=== PATIENT | female | born 1970 | race Caucasian/White ===

== ENCOUNTER → 2021-01-31 08:32 | Outpatient (CLI) | payer OTHER, SELFPAY ==
--- NOTE | 2021-01-31 08:55 | MM_ITS ---
PROCEDURE INFORMATION: Exam: MG Screening 3D Mammography Exam date and time: 01/31/2021 8:55 AM Age: 50 years old Clinical indication: Encounter for screening mammogram for malignant neoplasm of breast TECHNIQUE: Imaging protocol: Screening tomosynthesis and 2D mammography including computer-aided detection (CAD) when performed. COMPARISON: No relevant prior studies available. FINDINGS: MAMMOGRAPHY: Breast composition: The breast tissue is heterogeneously dense, which may obscure small masses. Mass: None. Architectural distortion: None. Calcifications: No suspicious calcifications. Asymmetric density: None. Skin thickening: None. Axillary adenopathy: None. IMPRESSION: No mammographic evidence of malignancy. Annual screening is recommended unless otherwise clinically indicated. ASSESSMENT: BI-RADS Category 1: Negative
== END ==
PROVIDERS: PCP Family Medicine; Visit Provider Family Medicine
DX: Z12.31 Encounter for screening mammogram for malignant neoplasm of breast (principal)
CPT/HCPCS: 77063; 77067

== ENCOUNTER → 2021-03-14 12:58 | Outpatient (CLI) | payer OTHER, SELFPAY | PROVIDERS: Visit Provider Internal Medicine Gastroenterology | DX: Z01.812 Encounter for preprocedural laboratory examination (principal); Z11.52 Encounter for screening for COVID-19; Z12.11 Encounter for screening for malignant neoplasm of colon | CPT/HCPCS: U0003 ==

== ENCOUNTER 2021-03-17 11:23 | Day surgery (SDC) | payer OTHER, SELFPAY ==
[2021-03-11 10:43] VITALS: BMI 29.7
[2021-03-17 11:37] VITALS: BP 162/95; PULSE 78; RESP 16; TEMP 37.6; O2SAT 100
--- NOTE | 2021-03-17 11:40 | P.PN_ITS ---
[facility] Anesthesia Checklist - Patient Identification Patient Identification: Arm Band - Structural Data Admitted From: Home Planned Operative Procedure/s: Colonoscopy Consent for Planned Operative Procedure(s) Verified: Yes - NPO Status Verified Time NPO: 00:00 - Airway Assessment C-Spine Mobility Assessed: Yes TMJ Mobility Assessed: Yes Dentition: Good Dentition - Neurological Assessment Level of Consciousness: Awake Hx Seizures: No Numbness or tingling in extremities: No - Anesthesia Plan Anesthesia Risk discussed: Yes Anesthesia Plan: Verified ASA Class: II Anesthesia Type: MAC [facility] History I have reviewed the patient's past medical history: Yes Medical History: Reports:: Anxiety, Hyperlipidemia, Hypertension, Migraine Denies:: Cancer, Diabetes Mellitus Type 1, Diabetes Mellitus Type 2, Internal Pacemaker, MRSA *Have you ever received a pneumonia vaccine?: No *Have you received a flu vaccine this season?: No Anesthesia experience/problems:: None Laterality Cases: Bilateral: Tonsillectomy Other Surgeries: Yes: Appendectomy, Hysterectomy-Total. No: Pacemaker Amputation: No Fractures: No - *Social History Smoking Status: Never smoker Alcohol Intake: never Substance Use Type: denies use *Occupational Status:: retired Housing: house *Travel in the last 8 weeks: None - Psychiatric History Pschychiatric History:: Reports:: Anxiety Family Hx:: No significant family history
--- NOTE | 2021-03-17 12:52 | HMH.PROC ---
[facility] Procedure Note Procedure Note:: Colonoscopy Procedure Report: Colonoscopy with cold biopsies Endoscopist: Pepe Brown II, MD Referring physician: Daniel Martinez MD Date of Procedure: March 17, 2021 Equipment: Olympus 190 variable stiffness pediatric colonoscope Sedation: MAC sedation Indication: Mrs. Sandoval is a 51-year-old who is here for initial screening colonoscopy. She reports no abdominal pain, weight loss, change in her bowel habits or rectal bleeding. She reports no family history of colon cancer. Her sister did have complicated diverticulitis requiring surgery. Procedure: Prior to the procedure, a history and physical exam was performed, and patient's medications and allergies were reviewed. The risks, benefits and alternatives of the sedation and procedure were discussed with the patient. All questions were answered and informed consent was obtained. The patient was brought to the procedure room. Patient identification and proposed procedure were verified by the physician and the nurse. The patient was placed in a left lateral decubitus position and the scope was passed under direct vision. Throughout the procedure, the patient's blood pressure, pulse, and oxygen saturations were monitored continuously. The colonoscopy was accomplished without difficulty. The patient tolerated the procedure well. Findings: On digital rectal examination there was normal rectal tone. There were no external hemorrhoids. The colonoscope was introduced through the anal canal to the rectum and advanced to the cecum. The ileocecal valve and appendiceal orifice were identified. The scope was advanced a short distance into the ileum which appeared grossly normal. The scope was then withdrawn into the colon. The cecum, ascending and transverse colon were grossly normal. There was some mild mucosal patchy erythema in the distal descending and sigmoid colon. Cold biopsies were obtained. There were no other mucosal abnormalities identified. Upon retroflexion within the rectum there were grade 1 none internal hemorrhoids.The preparation was excellent throughout with [place] Preparation Score of 9. The cecal time was 11 minutes. Impression: 1. Very mild focal descending/sigmoid erythema/edema?rule out self-limited colitis otherwise normal colonoscopy to ileum Plan: I will follow-up the biopsies. The patient will not require surveillance colonoscopy again for 10 years by ACS guidelines.
[2021-03-17 12:55] VITALS: BP 86/60; PULSE 76; RESP 12; TEMP 36.5; O2SAT 91
[2021-03-17 13:05] VITALS: BP 135/74; PULSE 71; RESP 16; O2SAT 92
[2021-03-17 13:15] VITALS: BP 124/77; PULSE 67; RESP 16; O2SAT 99
[2021-03-17 13:25] VITALS: BP 129/73; PULSE 60; RESP 16; TEMP 36.5; O2SAT 99
[2021-03-17 15:22] VITALS: O2SAT 97
== END 2021-03-17 13:30 | disposition home or self-care (01) ==
LOC: OUTP 11:25
PROVIDERS: PCP Family Medicine; Visit Provider Internal Medicine Gastroenterology
PROC: 0DJD8ZZ Inspection of Lower Intestinal Tract, Via Natural or Artificial Opening Endoscopic (ICD-10-PCS; CPT 45378; principal; 2021-03-17 12:30)
DX: Z12.11 Encounter for screening for malignant neoplasm of colon (principal); L53.8 Other specified erythematous conditions; Z83.79 Family history of other diseases of the digestive system; E78.5 Hyperlipidemia, unspecified; I10 Essential (primary) hypertension; F41.9 Anxiety disorder, unspecified; G43.909 Migraine, unspecified, not intractable, without status migrainosus; Z90.49 Acquired absence of other specified parts of digestive tract; Z88.1 Allergy status to other antibiotic agents; Z88.6 Allergy status to analgesic agent; Z88.8 Allergy status to other drugs, medicaments and biological substances; Z79.899 Other long term (current) drug therapy
CPT/HCPCS: 45380; J2704

== ENCOUNTER → 2022-06-25 01:37 | Outpatient (CLI) | payer OTHER, SELFPAY ==
[2022-06-25 18:30] LABS: Basophils # 0.2 K/mm3 (0-0.2); Basophils % 1.5 % (0.1-2.0); Chloride 100 mmol/L (98-107); Eosinophils # 0.4 K/mm3 (0.0-0.4); Hematocrit 44.9 % (37.0-47.0); Hemoglobin 15.2 g/dL (12.2-16.2); Lymphocytes # 2.7 K/mm3 (0.7-4.5); Lymphocytes % 22.2 % (10-50); Mean Corpuscular HGB Conc 33.9 g/dL (31.8-35.4); Mean Corpuscular Volume 88.5 fl (81-99); Mean Platelet Volume 9.5 fl (7.4-10.4); Monocytes # 0.7 K/mm3 (0.1-1.0); Neutrophils # 8.3 K/mm3 (1.8-7.8); Neutrophils % 67.4 % (37.0-80.0); Platelet Count 442 K/mm3 (142-424); Red Blood Count 5.08 M/mm3 (4.20-5.40); Red Cell Distribution Width 12.9 % (11.5-17.5); Sodium 139 mmol/L (136-145); White Blood Count 12.3 K/mm3 (4.8-10.8)
[2022-06-25 18:31] LABS: Potassium 3.6 mmoL/L (3.5-5.1)
[2022-06-25 18:33] LABS: Alanine Aminotransferase 39 U/L (12-78); Albumin Level 4.4 g/dl (3.5-5.0); Albumin/Globulin Ratio 1.6 (1.1-1.8); Alkaline Phosphatase 115 U/L (38-126); Anion Gap 17.6 mEq/L (5-15); Aspartate Amino Transferase 51 U/L (14-36); Bilirubin,Total 0.4 mg/dl (0.2-1.3); Blood Urea Nitrogen 4 mg/dl (7-17); Carbon Dioxide 25 mmol/L (22.0-30.0); Cholesterol 170 mg/dl (140-200); Estimated Glomerular Filt Rate 105 ml/min (>60); GFR (African American) 127 ML/MIN (>60); Globulin 2.8 g/dL (1.3-3.2); Total Protein,Serum 7.2 g/dl (6.3-8.2); Triglycerides 286 mg/dl (30-150); VLDL Cholesterol 57 mg/dL (0-40)
[2022-06-25 18:34] LABS: Calcium 9.5 mg/dl (8.4-10.2); Chol/HDL Ratio 4.3 (1-3.5); Glucose 113 mg/dl (74-100); HDL Cholesterol 40 mg/dl (40-60)
[2022-06-25 18:45] LABS: Direct LDL Cholesterol 74.02 mg/dL (100-129)
[2022-06-25 20:07] LABS: Hemoglobin A1C 5.1 % (4.0-6.0)
== END ==
PROVIDERS: PCP Family Medicine; Visit Provider Family Medicine
DX: E66.09 Other obesity due to excess calories (principal); Z68.33 Body mass index [BMI] 33.0-33.9, adult; Z79.899 Other long term (current) drug therapy
CPT/HCPCS: 80053; 80061; 83036; 84443; 85025

== ENCOUNTER → 2023-01-18 12:56 | Outpatient (CLI) | payer OTHER, SELFPAY | PROVIDERS: PCP Family Medicine; Visit Provider Family Medicine | DX: R00.2 Palpitations (principal) | CPT/HCPCS: 93306 ==

== ENCOUNTER → 2023-03-04 15:47 | Outpatient (CLI) | payer OTHER, SELFPAY ==
--- NOTE | 2023-03-04 15:47 | MM_ITS ---
PROCEDURE INFORMATION: Exam: US Left Breast, Complete MG Bilateral Diagnostic Breast Tomosynthesis Exam date and time: 03/04/2023 3:40 PM Age: 53 years old Clinical indication: Due for annual screening mammogram. New left breast palpable lump TECHNIQUE: Imaging protocol: Complete ultrasound of all four quadrants of the left breast and the retroareolar regions, including ultrasound of the axilla when performed. Bilateral Diagnostic tomosynthesis and 2D mammography including computer-aided detection (CAD) when performed. Unilateral or bilateral exam. COMPARISON: MG MM DIG SCREENING MAMM BI W/CAD 01/31/2021 8:54 AM FINDINGS: MAMMOGRAPHY: The breast is heterogeneously dense, which may obscure small masses. In the region of palpable concern approximately 12 o'clock left breast middle 1, there is a new irregular 1.5 cm mass with areas architectural distortion. No associated suspicious calcifications are present. No suspicious findings are present within the right breast No axillary adenopathy ULTRASOUND: Targeted ultrasound in the region of palpable concern left 12 o'clock 3 cm from the nipple was performed There is an irregular hypoechoic shadowing mass measuring 1.3 x 1.1 by 0.9 cm in the region of palpable concern. This has features suggestive of malignancy. There are simple cysts measuring 0.8 cm along the 9 o'clock axis left breast 1 cm from the nipple and measuring 0.8 cm along the 11 o'clock axis 2 cm from the left nipple Normal axillary lymph nodes are present. No axillary adenopathy is present IMPRESSION: The patient's palpable lump reflects a mammographically new 1.3 cm spiculated mass with features highly suggestive of breast cancer. Ultrasound-guided biopsy is recommended for definitive characterization ASSESSMENT: BI-RADS category 5: Highly suggestive of malignancy
== END ==
PROVIDERS: PCP Family Medicine; Visit Provider Family Medicine
DX: Z12.31 Encounter for screening mammogram for malignant neoplasm of breast (principal); N63.20 Unspecified lump in the left breast, unspecified quadrant
CPT/HCPCS: 76641; 77062; 77066; G0279

== ENCOUNTER 2024-02-17 14:42 | Outpatient (CLI) | payer OTHER, SELFPAY | END 2024-02-17 23:59 | disposition home or self-care (01) | LOC: LAB.DROPOF 02-18 10:10 | PROVIDERS: PCP Family Medicine; Visit Provider Family Medicine | DX: R30.0 Dysuria (principal) | CPT/HCPCS: 87086; 87088; 87186 ==

== ENCOUNTER 2024-04-20 15:00 | Outpatient (CLI) | payer OTHER, SELFPAY | END 2024-04-20 23:59 | disposition home or self-care (01) | LOC: LAB.DROPOF 04-21 13:39 | PROVIDERS: PCP Family Medicine; Visit Provider Family Medicine | DX: N39.0 Urinary tract infection, site not specified (principal); B96.1 Klebsiella pneumoniae [K. pneumoniae] as the cause of diseases classified elsewhere | CPT/HCPCS: 87086; 87088; 87186 ==

== ENCOUNTER 2024-05-19 14:22 | Outpatient (CLI) | payer OTHER, SELFPAY ==
[2024-05-19 17:57] LABS: Basophils # 0.1 K/mm3 (0-0.2); Basophils % 0.9 % (0.1-2.0); Eosinophils # 0.1 K/mm3 (0.0-0.4); Eosinophils % 1.3 % (0.1-12.0); Hematocrit 38.8 % (37.0-47.0); Hemoglobin 13.8 g/dL (12.2-16.2); Lymphocytes # 0.7 K/mm3 (0.7-4.5); Lymphocytes % 13.7 % (10-50); Mean Corpuscular HGB Conc 35.7 g/dL (31.8-35.4); Mean Corpuscular Hemoglobin 30.6 pg (27.0-31.2); Mean Corpuscular Volume 85.7 fl (81-99); Mean Platelet Volume 7.6 fl (7.4-10.4); Monocytes # 0.4 K/mm3 (0.1-1.0); Monocytes % 7.8 % (1.7-9.3); Neutrophils # 3.8 K/mm3 (1.8-7.8); Neutrophils % 76.2 % (37.0-80.0); Platelet Count 215 K/mm3 (142-424); Red Blood Count 4.52 M/mm3 (4.20-5.40); Red Cell Distribution Width 13.1 % (11.5-17.5)
[2024-05-19 18:11] LABS: Alanine Aminotransferase 20 U/L (12-78); Albumin/Globulin Ratio 1.7 (1.1-1.8); Alkaline Phosphatase 78 U/L (38-126); Aspartate Amino Transferase 48 U/L (14-36); Bilirubin,Total 0.9 mg/dl (0.2-1.3); Blood Urea Nitrogen 10 mg/dl (7-17); Calcium 9.7 mg/dl (8.4-10.2); Carbon Dioxide 31 mmol/L (22.0-30.0); Chloride 103 mmol/L (98-107); Estimated Glomerular Filt Rate 65 ml/min (>60); GFR (African American) 79 ML/MIN (>60); Globulin 2.3 g/dL (1.3-3.2); Glucose 125 mg/dl (74-100); Sodium 134 mmol/L (136-145); Total Protein,Serum 6.3 g/dl (6.3-8.2)
== END 2024-05-19 23:59 | disposition home or self-care (01) ==
LOC: LAB.DROPOF 05-20 10:39
PROVIDERS: PCP Family Medicine; Visit Provider Family Medicine
DX: C50.919 Malignant neoplasm of unspecified site of unspecified female breast (principal); E66.09 Other obesity due to excess calories; Z68.33 Body mass index [BMI] 33.0-33.9, adult
CPT/HCPCS: 80053; 85025

== ENCOUNTER 2024-09-01 07:00 | Outpatient (CLI) | payer OTHER, SELFPAY | END 2024-09-01 23:59 | disposition home or self-care (01) | LOC: LAB.DROPOF 09-02 07:00 | PROVIDERS: PCP Family Medicine; Visit Provider Family Medicine | DX: R30.0 Dysuria (principal) | CPT/HCPCS: 87086 ==

== ENCOUNTER 2025-01-24 09:00 | Outpatient (CLI) | payer OTHER, SELFPAY ==
--- OUTSIDE RECORDS SUMMARY | 2023-12-14 06:00 | XMS_ITS ---
Author Organization [facility] Address [address] [id number] Care Team Providers Care Qm Nurse Name Role Phone Marvin Martinez Primary Care Provider Demetrio Castano [facility] [phone] REASON FOR VISIT 93993 Encounters Encounter Location Date Provider Diagnosis [facility] [address] [place] [address] 12/14/2023 Demetrio Neff Plan Of Treatment No Information Progress Notes * Liana REESEDOB:1970 (54 yo F)Acc No.[id number]:12/14/2023 Patient: Liana NUNEZ Provider: Eladia Neff MD :1970 A ge:53 Y S ex:Female Date:12/14/2023 Address:[facility] [address], [place] Pcp:Marvin Martinez Subjective: * Chief Complaints: * 1 . [address]. * Medical History: Objective: * Vitals: Assessment: Plan: * Treatment: * * Electronic signature of Demetrio Neff MD on 01/25/2025 at 08:21 AM EDT Sign off status: Pending * Provider: Eladia Neff MD Date: 12/14/2023 Generated for Arnie britt/Troy/eTransmitting on: 01/25/2025 08:21 AM EDT
--- OUTSIDE RECORDS SUMMARY | 2023-12-24 11:00 | XMS_ITS ---
Author Organization [facility] Address [address] [address] Care Team Providers Care Aerospace Physiological Technician Name Role Phone Marvin Martinez Primary Care Provider Demetrio Castano [facility] [phone] REASON FOR VISIT 56982 Encounters Encounter Location Date Provider Diagnosis [facility] [address] [address] 12/24/2023 Demetrio Neff Plan Of Treatment No Information Progress Notes * Liana REESEDOB:1970 (54 yo F)Acc No.[id number]:12/24/2023 Patient: Liana NUNEZ Provider: Eladia Neff MD :1970 A ge:53 Y S ex:Female Date:12/24/2023 Address:[facility] [address], [place] Pcp:Marvin Martinez Subjective: * Chief Complaints: * 1 . 1950[address]. * Medical History: Objective: * Vitals: Assessment: Plan: * Treatment: * * Electronic signature of Demetrio Neff MD on 01/25/2025 at 08:20 AM EDT Sign off status: Pending * Provider: Eladia Neff MD Date: 12/24/2023 Generated for Arnie britt/Troy/eTransmitting on: 01/25/2025 08:20 AM EDT
--- OUTSIDE RECORDS SUMMARY | 2025-01-25 08:21 | XMS_ITS | Patient Health Record ---
Author Organization [facility] Address [address] [place], [place] [address] Care Team Providers Care Business Services Sales Agent Name Role Phone Marvin Martinez Primary Care Provider Unavailabl e Demetrio Neff Unavailable [phone] Reason For Referral No Information Medications Medication SIG (Take, Route, Frequency, Duration) Notes Start Date End Date Status Ondansetron HCl 8 MG TAKE 1 TABLET BY MO UTH EVERY 8 HOURS NEEDED FOR NAUSEA FOR VOMITING Oral for 3 Days Active Vitamin D (Ergocalciferol) 1.25 MG (57124 UT) Oral for 28 Days Activ e clonazePAM 1 MG Oral for 30 Days Active dilTIAZem HCl ER Coated Beads 240 MG TAKE 1 CAPSULE BY MOUTH EVERY DAY FOR ANXIETY Oral for 30 Days Active Klor-Con M20 20 MEQ Oral for 30 Days Active Zolpidem Tartrate 5 MG TAKE 1 TABLET BY MOUTH AT BEDTIME NEEDED FOR SLEEP Oral for 30 Days Active Prochlorperazine Maleate 10 MG Oral for 10 Days Active Lidocaine-Prilocaine 2.5-2.5 % External for 30 Days Active Tamsulosin HCl 0.4 MG TAKE 1 CAPSULE BY MOUTH NIGHTLY AT BEDTIME Oral for 30 Days Active Ubrelvy 100 MG Oral for 30 Days Active Pantoprazole Sodium 40 MG TAKE 1 TABLET BY MOUTH TWICE DAILY FOR 18 DAYS AND THEN 1 ONCE DAILY THEREAFTER Oral for 10 Days Active OLANZapine 5 MG Oral for 30 Days Active dexAMETHasone 4 MG TAKE 2 TABLETS BY MO UTH EVERY 12 HOURS STARTING ONE DAY PRIOR AND 2 DAYS AFTER EACH CHEMOTHERAPY TREATMENT, NOT ON DAY OF CHEMOTHERAPY Oral for 3 Days Active Pravastatin Sodium 20 MG Oral for 30 Days Active Diphenoxylate-Atropine 2.5-0.025 MG TAKE 2 TABLETS BY MOUTH THREE TIMES DAILY NEEDED FOR DIARRHEA Oral for 10 Days Active Plan Of Treatment Pending Test Test Name Order Date EGD 11/24/2023 EGD 12/13/2023 Future Test Test Name Order Date EGD 08/25/2023 Insurance Providers Payer Name Payer Address Payer Phone Subscriber Number Group Number Insured Name Patient Relationship to Insured Coverage Start Date Coverage End Date R [address] [address] [place] [address] [id number] Liana Sandoval Self - patient is the insured
--- OUTSIDE RECORDS SUMMARY | 2025-01-25 08:21 | XMS_ITS | Clinical Summary ---
Author Organization [facility] Address [address] [place] [address] Care Team Providers Care Kettle Room Helper Name Role Phone Unavailable Primary Care Provider Unavailabl e Source Comments This information has been disclosed to you from confidential records protectedfrom disclosure by state law. You shall make no further disclosure of thisinformation without the specific, written, and informed release of theindividual to whom it pertains, or as otherwise permitted by law. A generalauthorization for the release of medical or other information is not sufficientfor the purposes of therelease of HIV test results or diagnoses. [id number] Social History Tobacco Use Types Packs/Day Years Used Date Smoking Tobacco: Never Assessed Comments Unknown Sex and Gender Information Value Date Recorded Sex Assigned at Not on file Legal Sex Female 7:29 PM EST Gender Identity Not on file Sexual Orientation Not on file Plan of Treatment Health Maintenance Due Date Last Done Comments Abnormal Colonoscopy Follow Up 1970 Hepatitis C Screening (MyChart) 1970 Alcohol Misuse Screening 1987 Depression Screening 1987 HIV Screening 1987 Immunization: DTaP/Tdap/Td ( 1 - Tdap) 1988 Immunization: Hepatitis B (1 of 3 - 19+ 3-dose series) 1988 Cervical Cancer Screening/Pa p Smear (MyChart) 1999 Mammogram (MyChart) 2009 Cologuard (FIT-DNA) 2014 Colonoscopy 2014 Colorectal Cancer Screening (MyChart) 2014 Stool Testing (gFOBT) 2014 Immunization: Pneumococcal ( 1 of 1 - PCV) 2019 Immunization: Zoster (1 of 2) 2019 Immunization: COVID-19 ( - season) 2024 12/22/2020 Immunization: Influenza (MyC chance) (Season Ended) 2025 04/10/2023, 05/14/2022, 04/19/2020, Additional history exists
--- OUTSIDE RECORDS SUMMARY | 2025-01-25 08:21 | XMS_ITS | Clinical Summary ---
Author Organization [facility] Address [address] [id number] Care Team Providers Care Beaming Machine Operator Name Role Phone Marvin Martinez MD Primary Care Provider Social History Tobacco Use Types Packs/Day Years Used Date Smoking Tobacco: Never Assessed Comments Unknown Sex and Gender Information Value Date Recorded Sex Assigned at Not on file Legal Sex Female 5:57 PM EDT Gender Identity Not on file Sexual Orientation Not on file Last Filed Vital Signs Vital Sign Reading Time Taken Comments Blood Pressure 136/74 01/18/2023 6:08 PM EDT Pulse 86 01/18/2023 6:08 PM EDT Temperature - - Respiratory Rate - - Oxygen Saturation - - Inhaled Oxygen Concentration - - Weight 84.4 kg (186 lb) 01/18/2023 6:08 PM EDT Height 165.1 cm (5' 5 ) 01/18/2023 6:08 PM EDT Body Mass Index 30.95 01/18/2023 6:08 PM EDT Plan of Treatment Health Maintenance Due Date Last Done Comments [facility]-Depression Screening 1970 [facility]-/Child/Adol SDOH Screenings 1970 [facility]- SDOH Screenings 1987 [facility]-Adult SDOH Screenings 1987 [facility]-DTaP,Tdap,and Td Vaccines (1 - Tdap) 1988 [facility]-Hepatitis B Vaccines (1 of 3 - 19+ 3-dose series) 1988 [facility]-Pap Smear 1990 [facility]-Cervical Cancer Screening 1999 [facility]-HPV/Cotest 1999 CT Colonography 2014 Colonoscopy 2014 FIT-DNA 2014 FIT 2014 FOBT 2014 Sigmoidoscopy 2014 [facility]-Colorectal Cancer Screening 2014 [facility]-Pneumococcal Vaccine: 50+ Years (1 of 1 - PCV) 2019 [facility]-Zoster Vaccines (1 of 2) 2019 [id number]-[id number] Vaccine (2 - season) 2024 12/22/2020 [facility]-Influenza Vaccine (Season Ended) 2025 05/14/2022, 04/19/2020, 05/15/2019, Additional history exists HPV Vaccines Aged Out No longer eligi ble based on patient's age to complete this topic [facility]-HIB Vaccines Aged Out No longer e ligible based on patient's age to complete this topic [facility]-Hepatitis A Vaccines Aged Out No longer eligible based on patient's age to complete this topic [facility]-IPV Vaccines Aged Out No longer e ligible based on patient's age to complete this topic [facility]-Rotavirus Vaccines Aged Out No lo nger eligible based on patient's age to complete this topic Insurance Care Teams Beaming Machine Operator Relationship Specialty Start Date End Date Marvin Martinez MD PCP - General 12/20/20
--- OUTSIDE RECORDS SUMMARY | 2025-01-25 08:21 | XMS_ITS ---
Author Organization [facility] Care Team Providers Care Grain Mill Worker Name Role Phone Gabo Anthony Unavailable Unavailable Storm Dao Unavailable Unavailable Feliz Hernandez Unavailable Unavailable Hamed, Hector Unavailable Unavailable Enmanuel, Venus Unavailable Unavailable Tulimat, Mohammad Unavailable Unavailable Urz, Shantelle Unavailable Unavailable Allergies and adverse reactions Code CodeSystem Substance Reaction Severity StartDate Concern Status 49273 RXNORM traZODone Unknown 08/11/2023 active 84882 RXNORM Tessalon Unknown 08/11/2023 active 17898 RXNORM Maxalt Unknown 08/11/2023 active 6468 RXNORM Imodium Unknown 08/11/2023 active 19466 RXNORM Gabapentin Unknown 08/11/2023 active 2670 RXNORM Codeine Unknown 08/11/2023 active Care Team Name Role Address Phone Organization Dates Gabo Anthony PCP [address] [place], [address], [place] (Office): - [facility] 08/11/2023 - 09/22/2023 Storm Dao [address], [place], [address], [place] (Office[place] : [facility] 08/11/2023 - 09/22/2023 Feliz Hernandez [address] [facility], [place], [address], [place] (Office): : [facility] - [facility] 08/11/2023 - 09/22/2023 Hector Doherty [address], [place], [address], [facility] (Office): : [facility] - [facility] 08/11/2023 - 09/22/2023 Venus Singer [address], [place], [address], [facility] (Office): : [facility] - [facility] 08/11/2023 - 09/22/2023 Nhung Juarez [address], [place], [address], [facility] (Office): : [facility] - [facility] 08/11/2023 - 09/22/2023 Shantelle Hernandez [address] [place] [address], [facility] (Office): [facility] 08/11/2023 - 09/22/2023 Immunizations Immunization Status Vaccine Details Vaccine Code CodeSystem Date Notes Influenza completed Influenza, high-dose, split virus, quadrivalent, injectable, preservative free 197 CVX created date: 08/11/2023 consent date: 08/11/2023 administer ed date: 04/10/2023 TB 2 Step Mantoux Skin Test completed tuberculin skin test; unspecified formulation lotNumber: [id number] Given 0.1 ml Right Forearm intradermally Step 2 of Multi-step with next step required 98 CVX created date: 08/19/2023 consent date: 08/18/2023 administer ed date: 08/19/2023 TB 2 Step Mantoux Skin Test completed tuberculin skin test; unspecified formulation lotNumber: [id number] expiry: 04/09/2024 Given 0.1 ml Right Forearm intradermally Step 1 of Multi-step with next step required 98 CVX created date: 08/11/2023 consent date: 08/11/2023 administer ed date: 08/11/2023 Pneumovax (PPSV23) cancelled pneumococcal polysaccharide vaccine, 23 valent 33 CVX created date: 08/11/2023 consent date: 08/11/2023 Educated by Sonal Grey RN on 08/11/2023 SARS-COV-2 (COVID-19) cancelled SARS-COV-2 (COVID-19) vaccine, mRNA, spike protein, LNP, preservative free, rozina-sucrose, 30 mcg/0.3 mL dose 309 CVX created date: 08/12/2023 consent date: 08/12/2023 Educated by Sonal Grey RN on 08/11/2023 Covid Vaccine SARS-COV-2 (COVID-19) completed SARS-COV-2 (COVID-19) vaccine, vector non-replicating, recombinant spike protein-Ad26, preservative free, 0.5 mL Mfg: tvCompass Step 1 of Multi-step 212 CVX created date: 08/11/2023 administer ed date: 12/22/2020 Pneumovax (PCV13, PCV15, or PCV20) cancelled Pneumococcal conjugate vaccine 20-valent (PCV20), polysaccharide [id number] conjugate, adjuvant, preservative free 216 CVX created date: 08/11/2023 consent date: 08/11/2023 Educated by Sonal Grey RN on 08/11/2023 Mental Status Section Date Assessment Total Score Description 09/22/2023 BIMS 15 cognitively int act CAM 0 No delirium ind icated PHQ-9 00 08/17/2023 BIMS 13 cognitively int act CAM 0 No delirium ind icated PHQ-9 00 Problems Problem # Description Date of onset Resolved Date Code CodeSystem Concern Status 1 WEDGE COMPRESSION FRACTURE OF THIRD LUMBAR VERTEBRA, SUBSEQUENT ENCOUNTER FOR FRACTURE WITH ROUTINE HEALING 08/12/[address] active 2 ADULT FAILURE TO THRIVE 08/11/[address] active 3 ANEMIA DUE TO ANTINEOPLASTIC CHEMOTHERAPY 08/11/[address] active 4 ANXIETY DISORDER, UNSPECIFIED 08/11/[address] active 5 ESSENTIAL (PRIMARY) HYPERTENSION 08/11/[address] active 6 GASTRO-ESOPHAGEAL REFLUX DISEASE WITHOUT ESOPHAGITIS 08/11/[address] active 7 HISTORY OF FALLING 08/11/[address] active 8 HYPERLIPIDEMIA, UNSPECIFIED 08/11/[address] active 9 HYPOKALEMIA 08/11/[address] active 10 IRON DEFICIENCY ANEMIA, UNSPECIFIED 08/11/[address] active 11 MAJOR DEPRESSIVE DISORDER, RECURRENT, SEVERE WITH PSYCHOTIC SYMPTOMS 08/11/[address] active 12 MALIGNANT NEOPLASM OF UPPER-OUTER QUADRANT OF LEFT FEMALE BREAST 08/11/[address] active 13 MENTAL DISORDER, NOT OTHERWISE SPECIFIED 08/11/[address] active 14 OTHER DISORDERS OF NERVOUS SYSTEM 08/11/[address] active 15 OTHER LOW BACK PAIN 08/11/[address] active 16 OTHER SPECIFIED APLASTIC ANEMIAS AND OTHER BONE MARROW FAILURE SYNDROMES 08/11/[address] active 17 PAIN IN LEG, UNSPECIFIED 08/11/[address] active 18 PALPITATIONS 08/11/[address] activ e 19 PERSONAL HISTORY OF ANTINEOPLASTIC CHEMOTHERAPY 08/11/[address] active 20 PERSONAL HISTORY OF MALIGNANT NEOPLASM OF BREAST 08/11/[address] active 21 RETENTION OF URINE, UNSPECIFIED 08/11/[address] active 22 UNSPECIFIED FALL, SUBSEQUENT ENCOUNTER 08/11/[address] active 23 UNSPECIFIED PSYCHOSIS NOT DUE TO A SUBSTANCE OR KNOWN PHYSIOLOGICAL CONDITION 08/11/[address] active 24 WEAKNESS 08/11/[address] active 25 WEDGE COMPRESSION FRACTURE OF THIRD LUMBAR VERTEBRA, INITIAL ENCOUNTER FOR CLOSED FRACTURE 08/11/2023 08/12/[address] complete d Reason for Referral No Reasons for Referral Entered Social History Social History Observation Description Start Date End Date Code Code System Current Smoking Status Tobacco smoking consumption unknown 448573538 SNOMED CT Sex Assigned At Female 1970 89755-9 [facility] Gender Identity Vital Signs Code Code System Vitals Name Values and Units Timing Information 9279-1 [facility] Respiratory Rate Value=18.0 Units=/m in 09/22/2023 8310-5 [facility] Body Temperature Value=98.2 Units= F 09/22/2023 8867-4 [facility] Heart rate Value=84.0 Units=/min 17492-6 [facility] O2 % dC Oximetry Value=95.0 Units= % 09/22/2023 36105-9 [facility] Pain Level Value=3.0 09/22/2023 8462-4 [facility] Blood Pressure-Diastolic Value=68 Un its=mmHg 09/22/2023 8480-6 [facility] Blood Pressure-Systolic Gaefr=513 Un its=mmHg 09/22/2023 80886-4 [facility] Weight Zgwnv=722.2 Units=Lbs 09/2023 8302-2 [facility] Height Value=64.0 Units=Inches 08/12/2023
--- OUTSIDE RECORDS SUMMARY | 2025-01-25 08:21 | XMS_ITS | Clinical Summary ---
Author Organization [facility] Address [address] [place] [phone] Phone Care Team Providers Care Media Executive Name Role Phone Marvin Martinez MD Primary Care Provider [phone] Allergies Active Allergy Reactions Criticality Noted Date Comments Amitriptyline 04/03/2012 nightmares Sulfamethoxazole-Trime thoprim Nausea And Vomiting 04/03/2012 Bee Pollen 04/03/2012 Codeine Shortness Of Breath 04/03/2012 Benztropine Other (See Comments) 12/08/2013 thrush Gabapentin Other (See Comments) 04/03/2012 Blisters & vomiting Sumatriptan Succinate Palpitations 04/03/2012 Rizatriptan Palpitations 04/03/2012 Topiramate Itching 04/03/2012 Trazodone Other (See Comments) 09/17/2013 Violent behavior. Tizanidine 04/03/2012 Vision & hearing disturbances Medications * This document contains information received from the source organization and may not represent a complete record from that organization. diltiazem (CARDIZEM) 120 mg tablet Take 120 mg by mouth daily. Active norgestimate-eth inyl estradiol (ORTHO TRI-CYCLEN, 28,) 0.18/0.215/0.25 mg-35 mcg (28) tablet Take 1 Tab by mouth daily. Active POTASSIUM CHLORIDE (KLOR-CON M20 ORAL) Take 20 mEq by mouth daily. Active Active Problems Problem Noted Date Diagnosed Date Psychosis 12/10/2013 Hypokalemia 09/22/2013 Abnormal MRI of head 09/22/2013 Severe major depression with psychotic features Back pain Overview (09/22/2013): lower back pain Resolved Problems Problem Noted Date Diagnosed Date Resolved Date Acute delirium 08/10/2013 09/22/2013 Surgical History Surgery Date Site/Laterality Comments CHOLECYSTECTOMY TONSILLECTOMY APPENDECTOMY Medical History Medical History Date Comments Severe major depression with psychotic features (HCC) PVC (premature ventricular contraction) Back pain lower back pain Social History Tobacco Use Types Packs/Day Years Used Date Smoking Tobacco: Former Cigarettes S tarted: 11/06/1993 Alcohol Use Standard Drinks/Week Comments No 0 (1 standard drink = 0.6 oz pur e alcohol) Comments No Sex and Gender Information Value Date Recorded Sex Assigned at Not on file Legal Sex Female 8:00 AM EDT Gender Identity Not on file Sexual Orientation Not on file Obstetrics History Last Filed Vital Signs Vital Sign Reading Time Taken Comments Blood Pressure 112/82 12/11/2013 9:35 AM EDT Pulse 93 12/11/2013 9:35 AM EDT Temperature 36.8 C (98.3 F) 12/11/2013 9:35 AM EDT Respiratory Rate 18 12/11/2013 9:35 AM EDT Oxygen Saturation 98% 12/08/2013 9:37 PM EDT Inhaled Oxygen Concentration - - Weight 69.4 kg (153 lb) 12/08/2013 9:37 PM EDT Height 165.1 cm (5' 5 ) 12/08/2013 9:37 PM EDT Body Mass Index 25.46 12/08/2013 9:37 PM EDT Plan of Treatment Health Maintenance Due Date Last Done Comments Annual Wellness Exam 1972 DTaP/TDaP/Td (1 - Tdap) 1988 Hepatitis B Vaccine (1 of 3 - 19+ 3-dose series) 1988 Cervical Cancer Screening 1990 Pap Smear 1990 HPV/Pap Cotest 1999 Breast Cancer Screening 2009 Cologuard 2014 Colon Cancer Screening 2014 Colonoscopy 2014 FIT 2014 Sigmoidoscopy 2014 Virtual Colonography 2014 Pneumococcal Vaccine 50+ (1 of 1 - PCV) 2019 Zoster (1 of 2) 2019 COVID-19 Vaccine (2023-2 5 season) 2024 Influenza Vaccine (Season Ended) 2025 Meningococcal B Vaccine Aged Out No l onger eligible based on patient's age to complete this topic Insurance [address] [place] [address] [place] [place] [address] [place] [address] Advance Directives For more information, please contact: [phone] Documents on File Type Date Recorded Patient Delivery Aide Expl anation Power of Tier Lift Operator 12/13/2013 10:02 PM Care Teams Media Executive Relationship Specialty Start Date End Date Marvin Martinez MD PCP - General Family Medicine 04/03/12
== END 2025-01-24 23:59 | disposition home or self-care (01) ==
LOC: LAB.DROPOF 01-25 08:17
PROVIDERS: PCP Nurse Practitioner; Visit Provider Nurse Practitioner
DX: R30.0 Dysuria (principal)
CPT/HCPCS: 87086; 87088; 87186

== ENCOUNTER 2025-02-06 10:55 | Outpatient (CLI) | payer OTHER, SELFPAY ==
[2025-02-06 18:36] LABS: Hematocrit 39.8 % (37.0-47.0); Hemoglobin 13.4 g/dL (12.2-16.2); Immature Granulocytes % 0.4 %; Mean Corpuscular HGB Conc 33.7 g/dL (31.8-35.4); Mean Corpuscular Hemoglobin 29.6 pg (27.0-31.2); Mean Corpuscular Volume 87.9 fl (81-99); Nucleated Red Blood Cells % 0 %; Platelet Count 239 K/mm3 (142-424); Red Blood Count 4.53 M/mm3 (4.20-5.40); Red Cell Distribution Width-SD 38.5 fL; White Blood Count 5.5 K/mm3 (4.8-10.8)
[2025-02-06 19:07] LABS: Alanine Aminotransferase 20 U/L (12-78); Albumin Level 4.0 g/dl (3.5-5.0); Albumin/Globulin Ratio 1.9 (1.1-1.8); Alkaline Phosphatase 109 U/L (38-126); Anion Gap 11.8 mEq/L (5-15); Aspartate Amino Transferase 28 U/L (14-36); Bilirubin,Total 0.8 mg/dl (0.2-1.3); Blood Urea Nitrogen 12 mg/dl (7-17); Calcium 8.8 mg/dl (8.4-10.2); Carbon Dioxide 29 mmol/L (22.0-30.0); Chloride 97 mmol/L (98-107); Creatinine,Serum 0.80 mg/dl (0.52-1.04); Estimated Glomerular Filt Rate 74 ml/min (>60); GFR (African American) 90 ML/MIN (>60); Globulin 2.1 g/dL (1.3-3.2); Glucose 92 mg/dl (74-100); HDL Cholesterol 46 mg/dl (40-60); Potassium 3.8 mmoL/L (3.5-5.1); Sodium 134 mmol/L (136-145); Total Protein,Serum 6.1 g/dl (6.3-8.2); Uric Acid 5.2 mg/dl (2.5-6.2)
[2025-02-06 19:09] LABS: Cholesterol 202 mg/dl (140-200); Triglycerides 224 mg/dl (30-150)
[2025-02-06 19:15] LABS: 25-OH Vitamin D, Total 22.3 ng/mL (30-100)
[2025-02-06 19:33] LABS: Thyroid Stimulating Hormone 1.73 uIU/mL (0.465-4.68)
[2025-02-06 19:52] LABS: Vitamin B12 778 pg/mL (239-931)
[2025-02-06 19:54] LABS: Hemoglobin A1C 5.4 % (4.0-6.0)
[2025-02-08 07:13] LABS: RA Latex Turbid. <10.0 IU/mL (<14.0)
--- OUTSIDE RECORDS SUMMARY | 2025-02-08 11:05 | XMS_ITS | Clinical Summary ---
Author Organization [facility] Address [address] [id number] Care Team Providers Care Stain Maker Name Role Phone Marvin Martinez MD Primary Care Provider [phone] Social History Tobacco Use Types Packs/Day Years [...] Date Last Done Comments [facility]-Depression Screening 1969 [facility]-Infant/Child/Adol SDOH Screenings 1969 [facility]- SDOH Screenings 1987 [...] 2019 [facility]-Zoster Vaccines (1 of 2) 2019 [id number] Vaccine (2 - season) 2024 12/22/2020 [facility]-Influenza Vaccine (#1) 04/09/202505/14, 04/19/2020, 05/15/2019, Additional history exists HPV Vaccines [...] to complete this topic Insurance Care Teams Stain Maker Relationship Specialty Start Date End Date Marvin Martinez MD PCP - General 12/20/20
--- OUTSIDE RECORDS SUMMARY | 2025-02-08 11:05 | XMS_ITS | Clinical Summary ---
Author Organization [facility] Address [address] [place] [phone] Phone Care Team Providers Care Family Law Specialist Name Role Phone Marvin Martinez MD Primary Care Provider [phone] Allergies Active Allergy Reactions Criticality Noted Date [...] Zoster (1 of 2) 2019 COVID-19 Vaccine (1 - 2023-2 5 season) 2024 Influenza Vaccine (#1) 2025 Meningococcal B Vaccine Aged Out No l onger eligible based on patient's age to complete this topic Insurance [facility] [address] [place] [address] [place] [address] [place] [address] Advance Directives For more information, please contact: [phone] Documents on File Type Date Recorded Patient Slip Cover Operator Expl anation Power of Briquette Molder 12/13/2013 10:02 PM Care Teams Family Law Specialist Relationship Specialty Start Date End Date Marvin Martinez MD PCP - General Family Medicine 04/03/12
--- OUTSIDE RECORDS SUMMARY | 2025-02-08 11:05 | XMS_ITS | Clinical Summary ---
Author Organization [facility] Address [address] [place] [id number] Care Team Providers Care Funeral Pre Need Consultant Name Role Phone Unavailable Primary Care Provider [...] therelease of HIV test results or diagnoses. [id number] Social History Tobacco Use Types Packs/Day [...] season) 2024 12/22/2020 Immunization: Influenza (MyC chance) (#1) 2025 04/10/2023, 05/14/2022, 04/19/2020, Additional history exists
--- OUTSIDE RECORDS SUMMARY | 2025-02-08 11:05 | XMS_ITS | Data Portability ---
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 Anxiety Refill Klonopin 1 mg 1/2-1 po q 24 hours prn Migraine Refill Fioricet 50 mg-300 mg -40 mg 1 tablet po q 4 hours prn ngallenstein Not available 11/29/2017 12:01:18 02/23/2018 02/23/2018 Stable on psych regimen reviewed [email or web address] Not available 02/23/2018 16:27:12 Plan of Treatment Reminders Order Date Submit Date Provider Last Modified By Organization Details Last Modified Time Details Appointments None recorded . Lab CBC w/ auto diff 2017 018 [facility], [address], [address], [place], [address], 8 06:36:41 CMP, serum or plasma 2017 018 [facility], [address], [place] [address], [place], [address], 8 06:36:42 lipid panel, serum 2017 018 [facility]AC[facility], [address], [address], [place], [address], 8 06:36:43 rapid flu (A+B) 2017 018 [facility], [address] [place], [address], 8 20:23:21 Referral None recorded . Procedures None recorded . Surgeries None recorded . Imaging None recorded . Medication Orders trihexyp henidyl 5 mg tablet 2017 018 [facility], [address] [place] [address], [address], 8 15:09:35 Cartia XT 240 mg capsule, extended release 2017 018 [facility], [address] [place] [address], [address], 8 15:09:35 estradio l 1 mg tablet 2017 018 [facility], [address] [place] [address], [address], 8 15:09:35 Cartia XT 240 mg capsule, extended release 2017 018 [facility], [address] [place] [address], [address], 8 16:05:26 Lipitor 20 mg tablet 2017 018 [facility], [address] [place] [address], [address], 8 13:28:49 olanzapi ne 5 mg tablet 2017 018 [facility], [address] [place] [address], [address], 8 16:47:13 trihexyp henidyl 5 mg tablet 2017 018 [facility] 156, [address] [place], [address], 8 16:47:13 Fioricet 50 mg-300 mg-40 mg capsule [email or web address] [facility], [address] [place], [address], 8 18:45:00 Cartia XT 240 mg capsule, extended release 2017 018 [facility] 156, [address] [place], [address], 8 20:21:30 Klonopin 1 mg tablet 2017 018 [email or web address] [facility] 156, [address] [place], [address], 8 18:45:00 prometha zine 25 mg/mL injectio n solution 2017 018 [email or web address] Not available 8 20:06:34 estradio l 1 mg tablet 2017 018 [email or web address] [facility] 156, [address] [place], [address], 8 14:02:23 lactated Ringers intraven ous solution 2017 018 [email or web address] Not available 8 20:06:54 Patient TargetsNo targets recorded. Patient Instructions Encounter Date Encounter Id Patient Instructions Last Modified By Organization Details Last Modified Time 08/11/2017 [id number] diarrhea: care instructions sneus Not available 08/11/2017 20:23:21 nausea and vomiting: care instructions sneus Not available 08/11/2017 20:23:21 dehydration: car e instructions sneus Not available 08/13/2017 09:06:31 11/03/2017 [id number] high blood pressure: care instructions sneus Not available 11/03/2017 20:21:30 learning about high blood pressure sneus Not available 11/03/2017 20:21:30 02/23/2018 [id number] A healthy lifestyle: care instructions sneus Not available 02/23/2018 16:47:13 04/26/2018 [id number] Reviewed medications and potential side effects Not available 06/02/2018 13:01:16 08/08/2018 [id number] reviewed medications and potential side effects [email or web address] Not available 08/15/2018 16:36:37 Reason for Referral None Reported. Results Created Date Observation Date Name Description Value Unit Range Abnormal Flag Note LastModifiedBy Organization Detail LastModifiedTime 08/11/19 18 08/11/2017 rapid flu (A+B) Flu negati ve Not Available [address] [place], [address], 08/11/2017 17:22:47 08/11/19 18 08/11/2017 rapid flu (A+B) Type Both A & B Not Available [address] [place], [address], 08/11/2017 17:22:47 04/26/20 18 04/27/2018 CBC w/ auto diff WBC 8.7 x10e3 /uL 3.4-10 .8 Not Available [facility] ([facility]) [address] [facility], [place], [address], 04/27/2018 06:36:41 04/26/20 18 04/27/2018 CBC w/ auto diff RBC 4.67 x10e6 /uL 3.77-5 .28 Not Available [facility] ([facility]) [address] [facility], [place], [address], 04/27/2018 06:36:41 04/26/20 18 04/27/2018 CBC w/ auto diff hemoglobin 14.2 g/dL 11.1-1 5.9 Not Available [facility] ([facility]) [address] [facility], [place], [address], 04/27/2018 06:36:41 04/26/20 18 04/27/2018 CBC w/ auto diff hematocrit 40.2 % 34.0-4 6.6 Not Available [facility] ([facility]) [address] [facility], [place], [address], 04/27/2018 06:36:41 04/26/20 18 04/27/2018 CBC w/ auto diff MCV 86 fL 79-97 Not Available [facility] ([facility]) [address] [facility], [place], [address], 04/27/2018 06:36:41 04/26/20 18 04/27/2018 CBC w/ auto diff MCH 30.4 pg 26.6-3 3.0 Not Available [facility] ([facility]) [address] [facility], [place], [address], 04/27/2018 06:36:41 04/26/20 18 04/27/2018 CBC w/ auto diff MCHC 35.3 g/dL 31.5-3 5.7 Not Available [facility] ([facility]) [address] [facility], [place], [address], 04/27/2018 06:36:41 04/26/20 18 04/27/2018 CBC w/ auto diff RDW 13.3 % 12.3-1 5.4 Not Available [facility] ([facility]) [address] [facility], [place], [address], 04/27/2018 06:36:41 04/26/20 18 04/27/2018 CBC w/ auto diff platelets 313 x10e3 /uL 150-37 9 Not Available [facility] ([facility]) [address] [facility], [place], [address], 04/27/2018 06:36:41 04/26/20 18 04/27/2018 CBC w/ auto diff neutrophils 57 % not estab. Not Available [facility] ([facility]) [address] [place], [address], 04/27/2018 06:36:41 04/26/20 18 04/27/2018 CBC w/ auto diff lymphs 25 % not estab. Not Available [facility] ([facility]) [address] [facility], [place], [address], 04/27/2018 06:36:41 04/26/20 18 04/27/2018 CBC w/ auto diff monocytes 9 % not estab. Not Available [facility] ([facility]) [address] [place], [address], 04/27/2018 06:36:41 04/26/20 18 04/27/2018 CBC w/ auto diff eos 8 % not estab. Not Available [facility] ([facility]) [address] [facility], [place], [address], 04/27/2018 06:36:41 04/26/20 18 04/27/2018 CBC w/ auto diff basos 1 % not estab. Not Available [facility] (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) [address] [facility], [place], [address], 04/27/2018 06:36:41 04/26/20 18 04/27/2018 CBC w/ auto diff neutrophils (absolute) 4.9 x10e3 /uL 1.4-7. 0 Not Available [facility] ([facility]) [address] [place], [address], 04/27/2018 06:36:41 04/26/20 18 04/27/2018 CBC w/ auto diff lymphs (absolute) 2.2 x10e3 /uL 0.7-3. 1 Not Available [facility] ([facility]) [address] [facility], [place], [address], 04/27/2018 06:36:41 04/26/20 18 04/27/2018 CBC w/ auto diff monocytes(ab solute) 0.8 x10e3 /uL 0.1-0. 9 Not Available [facility] ([facility]) [address] [facility], [place], [address], 04/27/2018 06:36:41 04/26/20 18 04/27/2018 CBC w/ auto diff eos (absolute) 0.7 x10e3 /uL 0.0-0. 4 above high normal Not Available [facility] ([facility]) [address] [facility], [place], [address], 04/27/2018 06:36:41 04/26/20 18 04/27/2018 CBC w/ auto diff baso (absolute) 0.1 x10e3 /uL 0.0-0. 2 Not Available [facility] ([facility]) [address] [facility], [place], [address], 04/27/2018 06:36:41 04/26/20 18 04/27/2018 CBC w/ auto diff immature granulocytes 0 % not estab. Not Available [facility] ([facility]) [address] [facility], [place], [address], 04/27/2018 06:36:41 04/26/20 18 04/27/2018 CBC w/ auto diff immature grans (abs) 0.0 x10e3 /uL 0.0-0. 1 Not Available [facility] (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) [address] [place], [address], 04/27/2018 06:36:41 04/26/20 18 04/27/2018 CMP, serum or plasm a glucose 112 mg/dL 65-99 above high normal Not Available [facility] ([facility]) [address] [place], [address], 04/27/2018 06:36:42 04/26/20 18 04/27/2018 CMP, serum or plasm a BUN 6 mg/dL 6-24 Not Available [facility] ([facility]) [address] [place], [address], 04/27/2018 06:36:42 04/26/20 18 04/27/2018 CMP, serum or plasm a creatinine 0.73 mg/dL 0.57-1 .00 Not Available [facility] ([facility]) [address] [place], [address], 04/27/2018 06:36:42 04/26/20 18 04/27/2018 CMP, serum or plasm a eGFR if nonafricn AM 97 mL/mi n/1.7 3 >59 Not Available [facility] ([facility]) [address] [place], [address], 04/27/2018 06:36:42 04/26/20 18 04/27/2018 CMP, serum or plasm a eGFR if africn AM 112 mL/mi n/1.7 3 >59 Not Available [facility] ([facility]) [address] [place], [address], 04/27/2018 06:36:42 04/26/20 18 04/27/2018 CMP, serum or plasm a BUN/creatini ne ratio 8 9-23 below low normal Not Available [facility] ([facility]) [address] [place], [address], 04/27/2018 06:36:42 04/26/20 18 04/27/2018 CMP, serum or plasm a sodium 142 mmol/ L 134-14 4 Not Available [facility] ([facility]) [address] [place] [address] [place], [address], 04/27/2018 06:36:42 04/26/20 18 04/27/2018 CMP, serum or plasm a potassium 3.8 mmol/ L 3.5-5. 2 Not Available [facility] ([facility]) [address] [place], [address], 04/27/2018 06:36:42 04/26/20 18 04/27/2018 CMP, serum or plasm a chloride 104 mmol/ L 96-106 Not Available [facility] ([facility]) [address] [place], [address], 04/27/2018 06:36:42 04/26/20 18 04/27/2018 CMP, serum or plasm a carbon dioxide, total 21 mmol/ L 20-29 Not Available [facility] ([facility]) [address] [place], [address], 04/27/2018 06:36:42 04/26/20 18 04/27/2018 CMP, serum or plasm a calcium 8.9 mg/dL 8.7-10 .2 Not Available [facility] ([facility]) [address] [place], [address], 04/27/2018 06:36:42 04/26/2004/27/2018 CMP, serum or plasm a protein, total 6.9 g/dL 6.0-8. 5 Not Available [facility] ([facility]) [address] [place] [address], [address], 04/27/2018 06:36:42 04/26/20 18 04/27/2018 CMP, serum or plasm a albumin 4.3 g/dL 3.5-5. 5 Not Available [facility] ([facility]) [address] [place], [address], 04/27/2018 06:36:42 04/26/20 18 04/27/2018 CMP, serum or plasm a globulin, total 2.6 g/dL 1.5-4. 5 Not Available [facility] ([facility]) [address] [place], [address], 04/27/2018 06:36:42 04/26/2004/27/2018 CMP, serum or plasm a A/G ratio 1.7 1.2-2. 2 Not Available [facility] ([facility]) [address] [place], [address], 04/27/2018 06:36:42 04/26/2004/27/2018 CMP, serum or plasm a bilirubin, total 0.5 mg/dL 0.0-1. 2 Not Available [facility] ([facility] [address] [facility] [place], [address], 04/27/2018 06:36:42 04/26/2004/27/2018 CMP, serum or plasm a alkaline phosphatase 100 IU/L 39-117 Not Available [facility] [address] [place], [address], 04/27/2018 06:36:42 04/26/2004/27/2018 CMP, serum or plasm a AST (SGOT) 44 IU/L 0-40 above high normal Not Available [facility] ([facility]) [address] [place], [address], 04/27/2018 06:36:42 04/26/2004/27/2018 CMP, serum or plasm a ALT (SGPT) 43 IU/L 0-32 above high normal Not Available [facility] ([facility]) [address] [facility] [place], [address], 04/27/2018 06:36:42 04/26/20 18 04/27/2018 lipid panel , serum cholesterol, total 221 mg/dL 100-19 9 above high normal Not Available [facility] ([facility]) [address] [place], [address], 04/27/2018 06:36:43 04/26/20 18 04/27/2018 lipid panel , serum triglyceride s 220 mg/dL 0-149 above high normal Not Available [facility] ([facility]) [address] [facility], [place], [address], 04/27/2018 06:36:43 04/26/20 18 04/27/2018 lipid panel , serum HDL cholesterol 36 mg/dL >39 below low normal Not Available [facility] ([facility]) [address] [place], [address], 04/27/2018 06:36:43 04/26/20 18 04/27/2018 lipid panel , serum VLDL cholesterol margaret 44 mg/dL 5-40 above high normal Not Available [facility] ([facility]) [address] [facility] [place], [address], 04/27/2018 06:36:43 04/26/20 18 04/27/2018 lipid panel , serum LDL cholesterol calc 141 mg/dL 0-99 above high normal Not Available [facility] (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) [address] [place], [address], 04/27/2018 06:36:43 Result Notes None recorded. Problems Name Problem SNOMED Code Status Onset Date Resolution Date Notes Provider Name and Address Organization Details Recorded Time Anxiety 83437069 Active 2015 Crystal Fay null, [place] - [facility] 8 14:02:24 Chronic back pain 986814869 Active 2015 Crystal Fay null, [place] - [facility] 8 14:02:24 Depressive disorder 80854652 Active 2015 Crystal Fay null, [place] - [facility] 8 14:02:24 Dyspareunia 83772436 Active 2015 Crystal Fay null, [place] - [facility] 8 14:02:24 Hormone replacement therapy Active 2015 Crystal Fay null, [place] - [facility] 8 14:02:24 Hyperlipidemia 57431331 Active 2015 Crystal Fay null, [place] - [facility] 8 14:02:24 Migraine 74910158 Active 2015 Crystal Fay null, [place] - [facility] 8 14:02:24 Neuropathy 675011697 Active 2015 Crystal Fay null, [place] - [facility] 8 14:02:24 Pain in pelvis 12124398 Active 2015 Crystal Fay null, [place] - [facility] 8 14:02:24 History of mood disorder 237069251 Active 2015 Crystal Fay null, [place] - [facility] 8 14:02:24 Tachycardia 4898148 Active 2015 Crystal Fay null, [place] - [facility] 8 14:02:24 Visual disturbance 90384324 Active 2015 Crystal Fay null, [place] - [facility] 8 14:02:24 Problem Notes None recorded. Procedures Surgical History Date Name Laterality Status Provider Name and Address Organization Details Recorded Time 08/08/20 18 Systolic B/P less than 130 mm Hg completed [facility] [place] - [facility] 9 16:35:16 08/08/20 18 Diastolic B/P 80-89 mm Hg completed [facility] - [facility] 08/15/2018 16:35:18 Appendectomy completed Joan DOMINGUEZ - [facility] 06/08/2016 14:13:18 Cholecystectomy, laparoscopic completed Joan Sheth [place] - [facility] 06/08/2016 14:13:34 [facility] 14:13:43 Cryocautery of cervix completed Joan Domenic [place] - [facility] 06/08/2016 14:14:00 Tonsillectomy completed Joan DOMINGUEZ - [facility] 06/08/2016 14:15:16 Imaging Results None recorded. Procedure Notes None recorded. Medical Equipment None Reported. Allergies Allergen ID Allergen Name Allergen Category Reaction Reaction Severity Criticality Documentation Date Start Date Code Code System Note Provider Name and Address Organization Details Recorded Time 91246 Cipro medicatio n irregular heart rate Not available Not available 05/15/2016201156 3 RxNorm React ion: heart racin g; Not Available [facility] 6 08:05:18 76967 Topamax medicatio n Not available Not available Not available 05/15/2016200734 3 RxNorm React ion: numbn ess; Not Available [facility] 6 08:36:57 04741 ondansetr on hydrochlo ride medicatio n Not available Not available Not available 05/15/2016201514 8 RxNorm React ion: pt state s her tongu e feels thick ; Comme nt: no edema seen howev er pt state s her tongu e feels thick and it is bothe rsome ; Not Available [facility] 6 08:36:57 80823 Biaxin medicatio n Not available Not available Not available 05/15/2016200772 9 RxNorm React ion: n/v; Not Available [facility] 6 08:36:57 06299 Zanaflex medicatio n Not available Not available Not available 05/15/20162011 89025 6 RxNorm React ion: Loss of heari ng, confu trudy; Not Available [facility] 6 09:16:28 25318 codeine sulfate medicatio n anaphylax is Not available Not available 05/15/20162007 19043 RxNorm React ion: anaph ylact ic; Not Available [facility] 6 09:59:59 55871 Tessalon Perles medicatio n anaphylax is Not available Not available 05/15/20162015 4 RxNorm React ion: anaph ylact ic; Not Available [facility] 6 09:59:59 14676 trazodone medicatio n irregular heart rate Not available Not available 05/15/20162011 89366 RxNorm React ion: Heart racnoemi g; Not Available [facility] 6 09:59:59 Medications Name Sig Start Date Stop Date Status Note LastModified by Organization Details LastModified Time nystatin 100,000 unit/mL oral suspensio n take 4 millilit ers (400,000 unit) by oral route 4 times per day, 1/2 on each side of mouth, use until symptom free for 48 hours 01/24 completed nystatin 100,000 unit/mL oral suspensi on;Recor ded Status: Recorded on: 09/26/19 14 3:33PM;D iscontin ued Status: Disconti nued on: 01/25/20 14 6:06PM;U ser: dorita;P rinted: 09/26/19 14 Not Available Not Available Not Available atorvasta tin 20 mg tablet Take 1 tablet every day by oral route. 08/08 completed Not Available Not Available Not Available diltiazem ER 180 mg capsule,2 4 hr,extend ed release take 1 capsule by oral route daily 12/13 completed diltiaze m HCl 180 mg oral capsule, extended release; Recorded Status: Recorded on: 07/23/20 09 4:03PM;D iscontin ued Status: Disconti nued on: 12/14/19 10 3:00PM;U ser: cierra; Est. Completi on: 01/20/20 10;Indic ation: Ventricu lar Rate Control in Atrial Fibrilla tion - (07.4273 14) Not Available Not Available Not Available citalopra m 40 mg tablet take 1 tablet (40 mg) by oral route once daily 01/24 completed citalopr am 40 mg oral tablet;R ecorded Status: Recorded on: 09/05/19 13 4:44PM;D iscontin ued Status: Disconti nued on: 01/25/20 14 6:06PM;U ser: lisa;Es t. Completi on: 03/04/20 13;Indic ation: Depressi on - (44.6967 00) Not Available Not Available Not Available trazodone 50 mg tablet take 1 tablet by oral route daily 05/19 completed trazodon e 50 mg oral tablet;R ecorded Status: Recorded on: 04/22/20 10 3:38PM;D iscontin ued Status: Disconti nued on: 05/19/20 10 3:15PM;U ser: k; Est. Completi on: 04/23/20 10 Not Available Not Available Not Available ibuprofen 800 mg tablet take 1 tablet by oral route TID PRN with food 05/03 completed ibuprofe n 800 mg oral tablet;R ecorded Status: Recorded on: 04/11/20 14 6:55PM;U ser: neuss;In dication : Osteoart hritis - (67.1926 10) Not Available Not Available Not Available Risperdal 2 mg tablet take 1 tablet (2 mg) by oral route 2 times per day 02/05 completed Risperda l 2 mg oral tablet;R ecorded Status: Recorded on: 09/26/19 14 1:59PM;D iscontin ued Status: Disconti nued on: 02/06/20 14 4:34PM;U ser: granth Not Available Not Available Not Available fluconazo le 150 mg tablet Take 1 tablet every day by oral route as needed. 05/03 completed Not Available Not Available Not Available Vicodin 5 mg-500 mg tablet take 1 tablet by oral route every 8 hours 06/05 completed Vicodin 5-500 mg oral tablet;R ecorded Status: Recorded on: 03/08/20 09 4:19PM;D iscontin ued Status: Disconti nued on: 06/05/20 09 3:44PM;U ser: shahriarbe rysmith;Est. Completi on: 07/06/20 09;Indic ation: Pain - (41.8379 00) Not Available Not Available Not Available Cogentin 1 mg/mL injection solution one mg po bid 10/27 completed Cogentin 2 mg/2 mL injectio n solution ;Recorde d Status: Recorded on: 09/26/19 14 1:59PM;D iscontin ued Status: Disconti nued on: 10/28/19 14 6:58PM;U ser: granth Not Available Not Available Not Available Keflex 500 mg capsule take 1 capsule (500 mg) po qid for ten days 11/11 completed Keflex 500 mg oral capsule; Prescrib e Status: Prescrib ed on: 10/30/19 16 4:55PM;D iscontin ued Status: Disconti nued on: 11/12/19 16 5:10PM;U ser: gored;Es t. Completi on: 11/09/19 16;Pharm acyVeffie ied: 10/30/19 16 4:55PM Not Available Not Available Not Available Darvocet- N 100 100 mg-650 mg tablet take 1 tablet by oral route every 4-6 hours as needed for pain for 30 days 12/13 completed Darvocet -N 100 100-650 mg oral tablet;R ecorded Status: Recorded on: 06/28/20 09 3:43PM;D iscontin ued Status: Disconti nued on: 12/14/19 10 3:02PM;U ser: neuss;Es t. Completi on: 07/28/20 09 Not Available Not Available Not Available Vicodin ES 7.5 mg-750 mg tablet take 1 tablet by oral route every 6 hours as needed for pain for 30 days 12/13 completed Vicodin ES 7.5-750 mg oral tablet;R ecorded Status: Recorded on: 07/24/20 09 4:08PM;D iscontin ued Status: Disconti nued on: 12/14/19 10 3:05PM;U ser: neuss;Es t. Completi on: 09/22/19 10 Not Available Not Available Not Available meloxicam 15 mg tablet 04/26 completed Not Available Not Available Not Available Medrol (Darin) 4 mg tablets in a dose pack take as directed for 6 days 12/13 completed Medrol (Darin) 4 mg oral tablets, dose pack;Rec orded Status: Recorded on: 07/30/20 09 2:42PM;D iscontin ued Status: Disconti nued on: 12/14/19 10 3:05PM;U ser: gored;Es t. Completi on: 08/05/20 09;Print ed: 07/30/20 09 Not Available Not Available Not Available olanzapin e 5 mg tablet 1po qd active Not Available Not Available Not Available clonazepa m 1 mg tablet 1/2 -1 q 24 hrs prn active Not Available Not Available No t Available lactated Ringers intraveno us solution 1000ml to run over 1 hour 11/02 completed Not Available Not Available Not Available Zithromax Z-Darin 250 mg tablet take 2 tablets (500 mg) by oral route once daily for 1 day then 1 tablet (250 mg) by oral route once daily for 4 days 06/30 completed Zithroma x Z-Darin 250 mg oral tablet;P rescribe Status: Prescrib ed on: 05/10/20 13 2:05PM;D iscontin ued Status: Disconti nued on: 06/30/20 13 4:30PM;U ser: neuss;Es t. Completi on: 05/15/20 13;Pharm acyVerif ied: 05/10/20 13 2:05PM Not Available Not Available Not Available diphenoxy late-atro pine 2.5 mg-0.025 mg tablet Take 1 tablet 3 times a day by oral route as needed. 11/02 completed Not Available Not Available Not Available olanzapin e 10 mg tablet take 1 tablet by oral route every other day 10/23 completed olanzapi ne 10 mg oral tablet;R ecorded Status: Recorded on: 09/24/19 16 7:27PM;U ser: neuss;Es t. Completi on: 10/24/19 16;Indic ation: Mixed Bipolar I Disorder - (2966 ) Not Available Not Available Not Available hydroxyzi ne HCl 50 mg tablet take 1 tablet by oral route q pm prn 12/28 completed hydroxyz ine HCl 50 mg oral tablet;R ecorded Status: Recorded on: 01/12/20 12 2:37PM;D iscontin ued Status: Disconti nued on: 12/29/19 13 7:29PM;U ser: neuss;Es t. Completi on: 02/11/20 12;Indic ation: Anxiety - (053000 00) Not Available Not Available Not Available ciproflox acin 500 mg tablet Take 1 tablet twice a day by oral route for 10 days. 05/03 completed Not Available Not Available Not Available tramadol 50 mg tablet take 1 tablet (50 mg) by oral route every 4-6 hours as needed 06/05 completed tramadol 50 mg oral tablet;R ecorded Status: Recorded on: 03/01/20 09 3:41PM;D iscontin ued Status: Disconti nued on: 06/05/20 09 3:44PM;U ser: earlywin ec Not Available Not Available Not Available diltiazem ER 120 mg capsule,e xtended release 12 hr take 1 capsule (120 mg) by mouth every day 09/05 completed diltiaze m HCl 120 mg oral capsule, extended release 12 hr;Recor ded Status: Recorded on: 09/02/19 12 4:10PM;D iscontin ued Status: Disconti nued on: 09/05/19 13 4:13PM;U ser: neuss;Es t. Completi on: 02/29/20 12 Not Available Not Available Not Available Zofran 4 mg tablet one po q 4 to 6 hrs prn nausea and vomiting 12/10 completed Zofran (as hydrochl oride) 4 mg oral tablet;P rescribe Status: Prescrib ed on: 12/09/19 16 2:58PM;D iscontin ued Status: Disconti nued on: 12/11/19 16 4:54PM;U ser: gored;Es t. Completi on: 12/14/19 16;Pharm acyVerif ied: 12/09/19 16 2:58PM Not Available Not Available Not Available Tessalon Perles 100 mg capsule take 1 capsule (100 mg) by oral route 3 times per day prn cough 01/12 completed Tessalon Perles 100 mg oral capsule; Prescrib e Status: Prescrib ed on: 12/09/19 16 2:58PM;D iscontin ued Status: Disconti nued on: 01/13/20 16 4:56PM;U ser: gored;Es t. Completi on: 12/19/19 16;Indic ation: Cough - (16.5082 00);Phar Gil fied: 12/09/19 16 2:58PM Not Available Not Available Not Available citalopra m 20 mg tablet take 1 tablet (20 mg) by oral route once daily for 30 days 06/05 completed citalopr am 20 mg oral tablet;R ecorded Status: Recorded on: 10/10/19 09 2:41PM;D iscontin ued Status: Disconti nued on: 06/05/20 09 3:44PM;U ser: markesbe ryh;Est. Completi on: 02/07/20 09;Indic ation: Depressi on - (05.2850 00) Not Available Not Available Not Available Metrogel Vaginal 0.75 % (37.5 mg/5 gram) insert 1 applicat orful (37.5 mg) by vaginal route once daily at bedtime for 5 days beginnin g 03/23/1404/11 completed Metrogel Vaginal 0.75 % vaginal gel;Pres cribe Status: Prescrib ed on: 03/22/20 14 11:30AM; Disconti nued Status: Disconti nued on: 04/11/20 14 6:55PM;U ser: granth;E st. Completi on: 03/27/20 14;Pharm acLive ied: 03/22/20 14 11:30AM Not Available Not Available Not Available methocarb brian 750 mg tablet take 1 tablet (750 mg) by oral route every 4-6 hours as needed 12/13 completed methocar bamol 750 mg oral tablet;R ecorded Status: Recorded on: 06/05/20 09 4:14PM;D iscontin ued Status: Disconti nued on: 12/14/19 10 3:05PM;U ser: calvom;E st. Completi on: 06/15/20 09;Indic ation: Muscle Spasm - (52.6511 50);Prin jerman: 06/05/20 09 Not Available Not Available Not Available estradiol 1 mg tablet take 1 tablet by oral route daily 2017 active estradio l 1 mg oral tablet;P rescribe Status: Prescrib ed on: 08/13/19 16 4:49PM;U ser: latoya Est. Completi on: 08/07/20 16;Pharm acyVerif ied: 08/13/19 16 4:49PM Not Available Not Available Not Available Midrin 65 mg-100 mg-325 mg capsule take 2 capsules by oral route to start, then 1 capsule every hour until relief, not to exceed 5 capsules within a 12 hour period 06/08 completed Midrin 65-100-3 25 mg oral capsule; Recorded Status: Recorded on: 09/23/19 11 4:02PM;D iscontin ued Status: Disconti nued on: 06/08/20 12 11:54AM; User: radu EstSanjiv Completi on: 01/22/20 11;Indic ation: Migraine - (06.3469 00) Not Available Not Available Not Available Percocet 10 mg-325 mg tablet take 1 tablet by oral route 3 times a day 06/30 completed Percocet 10-325 mg oral tablet;R ecorded Status: Recorded on: 11/18/19 12 3:12PM;D iscontin ued Status: Disconti nued on: 06/30/20 13 4:30PM;U ser: Elizabeth t. Completi on: 11/25/19 12;Indic ation: Pain - (16.7809 00) Not Available Not Available Not Available diltiazem ER 120 mg capsule,2 4 hr,extend ed release take 1 capsule by oral route q3-4 days dysrryth deniz 12/28 completed diltiaze m HCl 120 mg oral capsule, extended release; Recorded Status: Recorded on: 11/23/19 13 4:52PM;D iscontin ued Status: Disconti nued on: 12/29/19 13 8:14PM;U ser: radu Est. Completi on: 05/21/20 13;Indic ation: Ventricu lar Rate Control in Atrial Fibrilla tion - (07.4273 14) Not Available Not Available Not Available meclizine 25 mg tablet take 1 tablet (25 mg) by oral route 3 times per day as needed 12/13 completed meclizin e 25 mg oral tablet;R ecorded Status: Recorded on: 08/15/19 10 10:08AM; Disconti nued Status: Disconti nued on: 12/14/19 10 3:05PM;U ser: gored;Es t. Completi on: 08/22/19 10;Indic ation: Vertigo - (16.7804 00);Prin jerman: 08/15/19 10 Not Available Not Available Not Available Soma 350 mg tablet 1 po qd - bid 03/01 completed Soma 350 mg oral tablet;R ecorded Status: Recorded on: 06/08/20 08 11:29AM; Disconti nued Status: Disconti nued on: 03/01/20 09 3:41PM;U ser: bakerc;E st. Completi on: 07/08/20 08;Indic ation: Back Pain - (13.7245 00) Not Available Not Available Not Available promethaz ine 25 mg/mL injection solution Take 50 mg by injectio n route. 11/02 completed Not Available Not Available Not Available promethaz ine 25 mg tablet take 1 tablet (25 mg) by oral route every 6 hours as needed for 3 days for Nausea and vomiting 11/03 completed Not Available Not Available Not Available trihexyph enidyl 5 mg tablet 1 tablet po daily 2017 active Not Available Not Available Not Avai lable gabapenti n 300 mg capsule take 1 capsule (300 mg) by oral route 3 times per day 04/23 completed gabapent in 300 mg oral capsule; Recorded Status: Recorded on: 04/23/20 10 3:18PM;D iscontin ued Status: Disconti nued on: 04/23/20 10 3:19PM;U ser: bishopk; Est. Completi on: 11/17/19 10 Not Available Not Available Not Available diclofena c sodium 75 mg tablet,de layed release take 1 tablet (75 mg) by oral route 2 times per day for 30 days 12/13 completed diclofen ac sodium 75 mg oral tablet,d elayed release (DR/EC); Recorded Status: Recorded on: 06/05/20 09 4:14PM;D iscontin ued Status: Disconti nued on: 12/14/19 10 3:02PM;U ser: calvom;E st. Completi on: 07/05/20 09;Print ed: 06/05/20 09 Not Available Not Available Not Available Cartia XT 240 mg capsule,e xtended release Take 1 capsule every day by oral route. 2017 active Not Available Not Available Not Avai lable Cardizem CD 120 mg capsule,e xtended release take 1 capsule (120 mg) by oral route once daily for 30 days 05/09 completed Cardizem CD 120 mg oral capsule, extended release 24hr;Rec orded Status: Recorded on: 02/28/20 13 8:53PM;D iscontin ued Status: Disconti nued on: 05/09/20 13 2:37PM;U ser: neuss;Es t. Completi on: 08/26/19 14;Indic ation: Tachycar ivan - (785.0) Not Available Not Available Not Available Jerzy-Tab 500 mg tablet,de layed release take 1 tablet (500 mg) by oral route 2 times per day for 10 days 12/13 completed Jerzy-Tab 500 mg oral tablet,d elayed release (DR/EC); Recorded Status: Recorded on: 07/30/20 09 2:42PM;D iscontin ued Status: Disconti nued on: 12/14/19 10 3:02PM;U ser: gored;Es t. Completi on: 08/09/19 10;Print ed: 07/30/20 09 Not Available Not Available Not Available trihexyph enidyl 2 mg tablet take 1 tablet (2 mg) by oral route once daily 05/22 completed trihexyp henidyl 2 mg oral tablet;R ecorded Status: Recorded on: 04/11/20 14 6:55PM;D iscontin ued Status: Disconti nued on: 05/22/20 15 6:38PM;U ser: neuss;In dication : Extrapyr amidal Disease - (451) Not Available Not Available Not Available Percocet 5 mg-325 mg tablet take 1 tablet by oral route every 6 hours as needed 12/13 completed Percocet 5-325 mg oral tablet;c omment: gets from Dr. Mcmahon;Re corded Status: Recorded on: 08/21/19 10 3:42PM;D iscontin ued Status: Disconti nued on: 12/14/19 10 3:05PM;U ser: bishopk; Indicati on: Pain - (4984 ) Not Available Not Available Not Available Ambien 10 mg tablet take 1 tablet (10 mg) by oral route once daily at bedtime 01/24 completed Ambien 10 mg oral tablet;R ecorded Status: Recorded on: 09/26/19 14 1:59PM;D iscontin ued Status: Disconti nued on: 01/25/20 14 6:06PM;U ser: granth Not Available Not Available Not Available Cartia XT 180 mg capsule,e xtended release TAKE ONE CAPSULE BY MOUTH ONCE DAILY 08/11 completed Not Available Not Available Not Available Lexapro 10 mg tablet take 1 tablet (10 mg) by oral route once daily for 30 days 12/13 completed Lexapro 10 mg oral tablet;R ecorded Status: Recorded on: 10/08/19 10 4:33PM;D iscontin ued Status: Disconti nued on: 12/14/19 10 3:05PM;U ser: neuss;Es t. Completi on: 11/02/19 10;Indic ation: Generali zed Anxiety Disorder - () Not Available Not Available Not Available Ortho Tri-Cycle n LO (28) 0.18 mg/0.215 mg/0.25 mg-25 mcg tablet take 1 tablet by oral route once daily for 28 days 04/11 completed Ortho Tri-Cycl en Lo (28) 0.18/0.2 15/0.25 mg-25 mcg oral tablet;R ecorded Status: Recorded on: 09/26/19 14 3:26PM;D iscontin ued Status: Disconti nued on: 04/11/20 14 6:55PM;U ser: dorita;Donna st. Completi on: 04/10/20 14;Print ed: 09/26/19 14 Not Available Not Available Not Available Phenadoz 25 mg rectal supposito ry Insert 1 supposit ory every 4 hours by rectal route as needed. 11/02 completed Not Available Not Available Not Available Klor-Con M20 mEq tablet,ex tended release take 0.5 tablet by oral route daily for 30 days 08/30 completed Klor-Con M20 20 mEq oral tablet,E R particle s/víctor ls;Recor ded Status: Recorded on: 05/24/20 13 1:21PM;D iscontin ued Status: Disconti nued on: 08/30/19 14 6:23PM;U ser: neuss;Es t. Completi on: 06/23/20 13;Indic ation: Hypokale deniz - (5469 ) Not Available Not Available Not Available Wellbutri n XL 150 mg 24 hr tablet, extended release take 1 tablet (150 mg) by oral route once daily for 30 days 12/27 completed Wellbutr in XL 150 mg oral tablet extended release 24 hr;comme nt: PER --TO BE STOPPED AFTER--S TOP AFTER JANUARY 08-10/2008 ;Recorde d Status: Recorded on: 06/08/20 08 11:29AM; Disconti nued Status: Disconti nued on: 12/28/19 09 10:15AM; User: phil;Donna st. Completi on: 12/06/19 09;Indic ation: Depressi on - (6647 ) Not Available Not Available Not Available Endocet 7.5 mg-325 mg tablet Take one tablet four times a day as needed for pain (must last 30 days) 11/17 completed Endocet 7.5-325 mg oral tablet;R ecorded Status: Recorded on: 12/14/19 10 3:05PM;D iscontin ued Status: Disconti nued on: 11/18/19 12 3:12PM;U ser: woodst;I ndicatio n: Pain - (16.7809 00) Not Available Not Available Not Available Cymbalta 60 mg capsule,d elayed release take 1 capsule (60 mg) by oral route once daily for 30 days 07/25 completed Cymbalta 60 mg oral capsule, delayed release( /EC);R ecorded Status: Recorded on: 04/23/20 10 3:10PM;D iscontin ued Status: Disconti nued on: 07/25/20 10 5:42PM;U ser: neuss;Es t. Completi on: 05/22/20 10 Not Available Not Available Not Available Klonopin 1 bid 06/05 completed klonopin 1mg;Timmy rded Status: Recorded on: 01/31/20 09 2:35PM;D iscontin ued Status: Disconti nued on: 06/05/20 09 3:44PM;U ser: markesbe ryh;Est. Completi on: 02/10/20 09;Indic ation: - (-5) Not Available Not Available Not Available azithromy edd 1 qd 03/01 completed azithrom ycin 500mg;Re corded Status: Recorded on: 01/31/20 09 2:35PM;D iscontin ued Status: Disconti nued on: 03/01/20 09 3:41PM;U ser: markesbe ryh;Est. Completi on: 02/07/20 09;Indic ation: - (-5) Not Available Not Available Not Available Zyprexa unsure of dose 03/22 completed Zyprexa oral;Rec orded Status: Recorded on: 02/06/20 14 4:34PM;D iscontin ued Status: Disconti nued on: 03/22/20 14 10:47AM; User: [email or web address] Not Available Not Available Not Available Celexa 1 qd 05/19 completed celexa 20mg;Rec orded Status: Recorded on: 05/06/20 09 5:24PM;D iscontin ued Status: Disconti nued on: 05/19/20 10 3:15PM;U ser: markesbe ryh;Est. Completi on: 09/03/19 10;Indic ation: - (-5) Not Available Not Available Not Available Indocin 1 po bid-tid prn 03/01 completed Indocin 50mg;Rec orded Status: Recorded on: 06/08/20 08 11:29AM; Disconti nued Status: Disconti nued on: 03/01/20 09 3:41PM;U ser: bakerc;E st. Completi on: 07/08/20 08;Indic ation: pain - (-5) Not Available Not Available Not Available Zyrtec 1` qd 03/01 completed zyrtec 10mg;Rec orded Status: Recorded on: 01/31/20 09 2:35PM;D iscontin ued Status: Disconti nued on: 03/01/20 09 3:41PM;U ser: shahriarbe ryh;Est. Completi on: 02/07/20 09;Indic ation: - (-5) Not Available Not Available Not Available Macrobid 1 bid 06/05 completed macrobid 100mg;Re corded Status: Recorded on: 05/06/20 09 5:24PM;D iscontin ued Status: Disconti nued on: 06/05/20 09 3:44PM;U ser: shahriarbe ryh;Est. Completi on: 05/20/20 09;Indic ation: - (-5) Not Available Not Available Not Available Bystolic 10 mg tablet take 1 tablet (10 mg) by oral route once daily 10/14 completed Bystolic 10 mg oral tablet;R ecorded Status: Recorded on: 09/05/19 13 4:44PM;D iscontin ued Status: Disconti nued on: 10/15/19 13 3:28PM;U ser: neuss;Es t. Completi on: 03/04/20 13;Indic ation: Hyperten trudy - (07.4019 00) Not Available Not Available Not Available Bystolic 5 mg tablet take 1 tablet (5 mg) by oral route once daily 11/22 completed Bystolic 5 mg oral tablet;R ecorded Status: Recorded on: 10/15/19 13 3:28PM;D iscontin ued Status: Disconti nued on: 11/23/19 13 4:49PM;U ser: neuss;Es tSanjiv Completi on: 04/12/20 13;Indic ation: Hyperten trudy - (4019 ) Not Available Not Available Not Available butalbita l-acetami nophen-ca ffeine 50 mg-300 mg-40 mg capsule Take 1 capsule every 4 hours by oral route as needed. active Not Available Not Available No t Available EpiPen 2-Darin 0.3 mg/0.3 mL injection , auto-inje ctor inject 0.3 mg by intramus cular route once for 1 day active Not Available Not Available No t Available potassium chloride ER 20 mEq tablet,ex tended release take 1 tablet (20 meq) by oral route once daily with food 03/22 completed luzassiu m chloride 20 mEq oral tablet extended release; Recorded Status: Recorded on: 01/25/20 14 6:06PM;D iscontin ued Status: Disconti nued on: 03/22/20 14 10:47AM; User: lisa;In dication : Hypokale deniz Preventi on - (27603 10) Not Available Not Available Not Available Flublok Quad 7210-5965 (PF) 180 mcg (45 mcg x 4)/0.5 mL IM syringe active Not Available Not Available Not Available Vitals Date Recorded Body height Body mass index (BMI) Body weight Heart rate Body temperature Respiratory rate Systolic And Diastolic Provider Name and Address Organization Details Last Updated DateTime 8 163.83 cm 30.8 kg/m2 96713.8 1 g 122 /min 98.5 [degF] 18 /min 110/90 mm[Hg] Jyothi Lorenzohop [place] - [facility] 8 17:23:52 Date Recorded Body height Body mass index (BMI) Body weight Heart rate Respiratory rate Systolic And Diastolic Provider Name and Address Organization Details Last Updated DateTime 8 163.83 cm 31.9 kg/m2 77254.9 6 g 88 /min 18 /min 128/92 mm[Hg] Jyothi Lemos [facility] 8 17:17:18 Date Recorded Body height Body mass index (BMI) Body weight Heart rate Respiratory rate Systolic And Diastolic Provider Name and Address Organization Details Last Updated DateTime 8 163.83 cm 31.3 kg/m2 71577.5 9 g 84 /min 18 /min 124/94 mm[Hg] Jyothi Lemos [facility] 8 14:35:32 Date Recorded Body height Body mass index (BMI) Body weight Respiratory rate Heart rate Oxygen saturation Oxygen saturation in Arterial blood by Pulse oximetry Systolic And Diastolic Provider Name and Address Organization Details Last Updated DateTime 8 163.83 cm 31.6 kg/m2 56905.7 7 g 20 /min 90 /min 98 % 98 % 126/88 mm[Hg] [facility] [place] 8 12:52:39 Date Recorded Body height Body mass index (BMI) Body weight Respiratory rate Systolic And Diastolic Provider Name and Address Organization Details Last Updated DateTime 08/08/2018 163.83 cm 31.6 kg/m2 55214.7 7 g 20 /min 128/80 mm[Hg] [facility] [place] 9 16:34:17 Social History Question Answer Notes LastModified by Organizat ion Details LastModified Time Tobacco Smoking Status [facility] 14:11:59 Which Illicit Or Recreational Drugs Have You Used? Never [email or web address] Information not available 06/08/2016 Hard Of Hearing Or Deaf In One Or Both Ears? No [email or web address] Information not available 06/08/2016 Legally Blind In One Or Both Eyes? No [email or web address] Information no t available 06/08/2016 What Was The Date Of Your Most Recent Tobacco Screening? 08/15/2018 Information not available 2019 Seat Belts Used Routinely Yes [email or web address] Information not available 06/08/2016 Smoke Alarm In Home Yes [email or web address] Information not available 06/08/2016 How Much Tobacco Do You Smoke? No [email or web address] Information not available 06/08/2016 General Stress Level Low [email or web address] Information not available 06/08/2016 Sex: Unknown Functional Status Question Answer Note LastModified by Organizat ion Details LastModified Time Are you currently employed? No Information not available 06/08/2016 Are you able to care for yourself? 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 Occasional [email or web address] Information not available 06/08/2016 Mental Status None recorded. Family History Relationship Description Onset Age of this Age Resolved Age Notes LastModified by Organization Details LastModified Time Sister Anxiety disorder [email or web address] Not available 2015 14:09:59 Unspecified Relation Arthritis [email or web address] Not available 2015 14:10:09 Unspecified Relation Coronary arterioscler osis [email or web address] Not available 2015 14:10:21 Maternal Grandmother Cataract [email or web address] Not available 05/11 14:10:35 Maternal Grandmother Essential hypertension [email or web address] Not available 14:10:54 Father Neoplasm of lung asbest os [email or web address] Not available 06/08/2016 14:11:22 Maternal Grandfather Myocardial infarction Not available 06/08 14:11:38 Medical History Condition Response Depression Y Anxiety Disorder Y Hyperlipidemia Y Gynecological HistoryNo gynecological history recorded. Obstetrics History GPAL:G 0 P 0 0 0 0 Immunizations Vaccine Type Date Status Note Provider Nam e and Address Organization Details Recorded Time Influenza, split virus, quadrivalent, preservative 7 completed Not Available [facility] 08/26/2019 03:54:35 Past Encounters Encounter ID Performer Location Encounter Start Date Encounter Closed Date Diagnosis/Indication Diagnosis SNOMED-CT Code Diagnosis ICD10 Code Diagnosis Note [id number] Marvin Martinez MD [facility] [address] [place] [address] 06/08/2016 14:28:32 06/08/2016 16:44:59 Anxiety 86614727 F41.9 History of mood disorder 265094294 Z86.59 Tachycardia 6507521 R00. 0 [id number] Marvin Martinez MD [facility] [address] [place] [address] 08/11/2016 16:46:19 08/12/2016 08:03:36 Benign hypertension 09287782 I10 Anxiety 75389575 F41.9 Migraine 12891422 G43.90 9 History of mood disorder 162001630 Z86.59 Tachycardia 6160960 R00. 0 Hormone re placement therapy 372553027 Z79.591 [id number] Marvin Martinez MD [address] [place] [address] 10/09/2016 16:20:44 10/12/2016 08:12:36 Migraine 52244176 G43.909 Anxiety 66816374 F41.9 [id number] Gaby Guerra APRN [address] [place] [address] 12/01/2016 16:10:05 12/01/2016 16:44:04 Body mass index 30+ - obesity 154205093 Z68.39 Diarrhea 13517061 R19.7 Influenza- like illness 11023315 B34.9 [id number] Marvin Martinez MD [address] [place] [address] 02/03/2017 15:53:37 02/04/2017 08:09:47 Migraine 33063723 G43.909 Anxiety 85399440 F41.9 Renewal of prescription 723485216 Z76.0 [id number] Marvin Martinez MD [address] [place] [address] 05/03/2017 16:24:37 05/24/2017 17:35:30 Hormone replacement therapy 303050610 Z79.890 Administra tion of influenza vaccine 33404137 Z23 Anxiety 32620312 F41.9 Migraine 74951865 G43.90 9 Renewal of prescription 591621144 Z76.0 History of mood disorder 990712676 Z86.59 [id number] Marvin Martniez MD [address] [place] [address] 08/11/2017 16:19:20 08/11/2017 18:27:54 Renewal of prescription 086024841 Z76.0 Influenza- like symptoms 743135753 R68.89 Nausea and vomiting 1693 2000 R11.2 Diarrhea 24770175 R19.7 Dehydration 64417856 E86 .0 22 gauge angiocath inserted R anterior arm without difficulty and blood return noted--d/c 'd after fluids infused and pressure dressing applied [id number] Marvin Martinez MD [address] [place] [address] 11/03/2017 16:20:14 11/03/2017 18:24:51 Anxiety 06965930 F41.9 Essential hypertension 86270633 I10 Migraine 56852042 G43.90 9 [id number] Marvin Martinez MD [address] [place] [address] 02/23/2018 13:50:23 02/23/2018 16:18:33 Tachycardia 6449750 R00.0 Benign hypertension 1072 5009 I10 History of mood disorder 362750510 Z86.59 Migraine 12110773 G43.90 9 Body mass index 30+ - obesity 401805038 Z68.39 [id number] Bal Coughlin MD [address] [place] [address] 04/26/2018 12:34:19 04/26/2018 14:45:53 Chronic back pain 810743157 G89.29 Hormone re placement therapy 435252453 Z79.890 Tachycardia 3395849 R00. 0 Essential hypertension 18451440 I10 Hyperlipidemia 43170659 E78.5 [id number] Bal Coughlin MD [address] [place] [address] 08/08/2018 13:05:02 08/08/2018 16:58:03 Chronic back pain 364642794 G89.29 Hormone re placement therapy 869831943 Z79.890 Pain in pelvis 08886461 R10.2 Tachycardia 7680308 R00. 0 Migraine 61227202 G43.90 9 Hyperlipidemia 79504279 E78.5 Essential hypertension 43931378 I10 History of mood disorder 804856686 Z86.59 Health Concerns Section Related Observation LastModified by Organization Detai ls LastModified Time None Recorded Concern Status LastModified by Organization Details LastModified Time None Recorded Advance Directives Directive None Recorded Payers Insurance Date Sequence Insurance Name Policy Number Policy Chandler Covered Member ID Chandler Member ID Guarantor Name 08/22/2018 1 [place] [facility] ([place] [id number] Daniel Sandoval [id number] Daniel Sandoval Notes Date Note Type Note Provider Name and Address Organization Details Recorded Time 8 text/html NauseaReported bypatient.Locationdiffuse Quality:worsening; frequent Severity:moderate Durationacute with vomiting and diarrhea Onset/Timing:abrupt onset Contextothers with similar symptoms; influenza, son-in-law Alleviating factors:nothing helps Aggravating factors:any po intake Associated Symptoms:fever;diarrhea;vom iting ANGELICA Craven - [facility] 09/15/2017 16:29:51 8 text/html Care Management - HypertensionReported bypatient.Prognosis:expecte d outcome: stabilize; prognosis: guarded Self Care:not under emotional stress Severity:no change since last visit Associated Symptoms:no dizziness; no lightheadedness; no chest pain; no shortness of breath; no palpitations; no edema; no calf muscle cramps; no blurred vision; no confusion; no fatigueGeneralized Anxiety DisorderReported bypatient.Severity:moderate Context:life stressors; stable on medication Modifying Factors:other medications Associated Symptoms:no difficulty concentrating; no difficulty controlling worry; no difficulty swallowing; no excessive sweating; no hot flashes; no palpitations; no shortness of breath; no nausea; no diarrhea; no fatigue; no irritability; no muscle tension; no muscle aches; no trembling; no twitching; no restlessness; no sleep disturbances; migraines and intermittent anxiety but both are controlled with medication ANGELICA Stroud - [facility] 11/29/2017 12:02:21 8 text/html HeadacheReported bypatient.Location:bilatera l; occipital; band around head Quality:similar to previous headaches; occurring more frequently Severity:moderate Duration:recent worsening Onset/Timing:gradual Context:not related to trauma; no pattern Aggravating factors:loud noise Alleviating factors:excedrin migraine first and then the headache medication prescribed Associated Symptoms:no vomiting;photophobiaHyperte nsion F/UReported bypatient.Medications:takin g medications as directed; checks blood pressure at home, range:; states blood pressure has been fluctuating Lifestyle:not exercising regularly Associated Symptoms:dizziness;lighthea dedness ANGELICA Stroud [facility] 02/23/2018 16:29:50 8 text/html doing ok with needs medhyperlipidemia, hypertension chronic back pain, history of tachycardia ANGELICA Verma [facility] 06/02/2018 13:01:51 8 text/html HyperlipidemiaReported bypatient.Type of hyperlipidemia:combined Duration:chronic Control:unchanged Current Therapy:currently taking:; lipitor 20mg Compliance:compliant with diet Complications:tachycardiaHy pertension F/UReported bypatient.Medications:takin g medications as directed; no side effects from medication Lifestyle:compliant with low salt diet Associated Symptoms:no chest pain; no shortness of breath; no palpitations; no edema; no calf pain with exertion; no headache;dizziness;lighthea dedness Nilda morillo [facility] 06/02/2018 13:01:51 8 text/html HyperlipidemiaReported bypatient.Type of hyperlipidemia:combined Duration:chronic Control:unchanged Current Therapy:currently taking:; lipitor 20mg Compliance:compliant with diet Complications:tachycardiaHy pertension F/UReported bypatient.Medications:takin g medications as directed; no side effects from medication Lifestyle:compliant with low salt diet Associated Symptoms:no chest pain; no shortness of breath; no palpitations; no edema; no calf pain with exertion; no headache;dizziness;lighthea dedness doing ok gets migraine weather related fiorcet and phenerganatoravastin causes headachedenies others [facility] 16:37:11 OBGyn Episode No OBEpisode recorded.
--- OUTSIDE RECORDS SUMMARY | 2025-02-08 11:05 | XMS_ITS ---
Author Organization [facility] - SN[facility] Care Team Providers Care Entry Level Paralegal Name Role Phone Gabo Anthony Unavailable Unavailable Storm Dao Unavailable Unavailable Feliz Hernandez Unavailable Unavailable Hamed, Hector Unavailable Unavailable Enmanuel, Venus Unavailable Unavailable Tulimat, Mohammad Unavailable Unavailable Urz, Shantelle Unavailable Unavailable Allergies and adverse reactions Code CodeSystem Substance Reaction Severity StartDate Concern Status 20607 RXNORM traZODone Unknown 08/11/2023 active 08537 RXNORM Tessalon Unknown 08/11/2023 active 54573 RXNORM Maxalt Unknown 08/11/2023 active 6468 RXNORM Imodium Unknown 08/11/2023 active 65186 RXNORM Gabapentin Unknown 08/11/2023 active 2670 RXNORM Codeine Unknown 08/11/2023 active Care Team Name Role Address Phone Organization Dates Gabo Anthony PCP [address] [place], [address], [place] (Office): - [facility] 08/11/2023 - 09/22/2023 Storm Dao [address], [place], [address], [place] (Office): : [facility] 08/11/2023 - 09/22/2023 Feliz Hernandez [address] [facility], [place], [address], [place] (Office): : [facility] - [facility] 08/11/2023 - 09/22/2023 Hector Doherty [address], [place], [address], [facility] (Office): : [facility] 08/11/2023 - 09/22/2023 Venus Singer [address], [place], [address], [facility] (Office): : [facility] - [facility] 08/11/2023 - 09/22/2023 Nhung Juarez [address], [place], [address], [facility] (Office): : [facility] - [facility] 08/11/2023 - 09/22/2023 Shantelle Hernandez [address] [address], [facility] (Office): [facility] 08/11/2023 - 09/22/2023 Immunizations Immunization Status Vaccine Details Vaccine Code CodeSystem Date Notes Influenza completed Influenza, high-dose, split virus, quadrivalent, injectable, preservative free 197 CVX created date: 08/11/2023 consent date: 08/11/2023 administer ed date: 04/10/2023 TB 2 Step Mantoux Skin Test completed tuberculin skin test; unspecified formulation lotNumber: [id number] Given 0.1 ml Right Forearm intradermally Step 2 of Multi-step with next step required 98 CVX created date: 08/19/2023 consent date: 08/18/2023 administer ed date: 08/19/2023 TB 2 Step Mantoux Skin Test completed tuberculin skin test; unspecified formulation lotNumber: [id number] expiry: 04/09/2024 Given 0.1 ml Right Forearm [...] spike protein-Ad26, preservative free, 0.5 mL Mfg: [email or web address] Step 1 of Multi-step 212 CVX created date: 08/11/2023 administer ed date: 12/22/2020 Pneumovax (PCV13, PCV15, or PCV20) cancelled Pneumococcal conjugate vaccine 20-valent (PCV20), polysaccharide [id number] conjugate, adjuvant, preservative free 216 CVX created [...] ENCOUNTER FOR FRACTURE WITH ROUTINE HEALING 08/12/[address] active 2 ADULT FAILURE TO THRIVE 08/11/[address] active 3 ANEMIA DUE TO ANTINEOPLASTIC CHEMOTHERAPY 08/11/[address] active 4 ANXIETY DISORDER, UNSPECIFIED 08/11/[address] active 5 ESSENTIAL (PRIMARY) HYPERTENSION 08/11/[address] active 6 GASTRO-ESOPHAGEAL REFLUX DISEASE WITHOUT ESOPHAGITIS 08/11/[address] active 7 HISTORY OF FALLING 08/11/[address] active 8 HYPERLIPIDEMIA, UNSPECIFIED 08/11/[address] active 9 HYPOKALEMIA 08/11/[address] active 10 IRON DEFICIENCY ANEMIA, UNSPECIFIED 08/11/[address] active 11 MAJOR DEPRESSIVE DISORDER, RECURRENT, SEVERE WITH PSYCHOTIC SYMPTOMS 08/11/[address] active 12 MALIGNANT NEOPLASM OF UPPER-OUTER QUADRANT OF LEFT FEMALE BREAST 08/11/[address] active 13 MENTAL DISORDER, NOT OTHERWISE SPECIFIED 08/11/[address] active 14 OTHER DISORDERS OF NERVOUS SYSTEM 08/11/[address] active 15 OTHER LOW BACK PAIN 08/11/[address] active 16 OTHER SPECIFIED APLASTIC ANEMIAS AND OTHER BONE MARROW FAILURE SYNDROMES 08/11/[address] active 17 PAIN IN LEG, UNSPECIFIED 08/11/[address] active 18 PALPITATIONS 08/11/[address] activ e 19 PERSONAL HISTORY OF ANTINEOPLASTIC CHEMOTHERAPY 08/11/[address] active 20 PERSONAL HISTORY OF MALIGNANT NEOPLASM OF BREAST 08/11/[address] active 21 RETENTION OF URINE, UNSPECIFIED 08/11/[address] active 22 UNSPECIFIED FALL, SUBSEQUENT ENCOUNTER 08/11/[address] active 23 UNSPECIFIED PSYCHOSIS NOT DUE TO A SUBSTANCE OR KNOWN PHYSIOLOGICAL CONDITION 08/11/[address] active 24 WEAKNESS 08/11/[address] active 25 WEDGE COMPRESSION FRACTURE OF THIRD LUMBAR VERTEBRA, INITIAL ENCOUNTER FOR CLOSED FRACTURE 08/11/2023 08/12/[address] complete d Reason for Referral No Reasons for Referral Entered Social History Social History Observation Description Start Date End Date Code Code System Current Smoking Status Tobacco smoking consumption unknown 816813033 SNOMED CT Sex Assigned At Female 1970 30480-3 [facility] Gender Identity Vital Signs Code Code System Vitals Name Values and Units Timing Information 9279-1 [facility] Respiratory Rate Value=18.0 Units=/m in 09/22/2023 8310-5 [facility] Body Temperature Value=98.2 Units= F 09/22/2023 8867-4 [facility] Heart rate Value=84.0 Units=/min 99176-0 [facility] O2 % dC Oximetry Value=95.0 Units= % 09/22/2023 31697-8 [facility] Pain Level Value=3.0 09/22/2023 8462-4 [facility] Blood Pressure-Diastolic Value=68 Un its=mmHg 09/22/2023 8480-6 [facility] Blood Pressure-Systolic Zntua=598 Un its=mmHg 09/22/2023 97032-4 [facility] Weight Vakaq=697.2 Units=Lbs 09/2023 8302-2 [facility] Height Value=64.0 Units=Inches 08/12/2023
[2025-02-12 18:40] LABS: Antinuclear Antibodies, IFA Negative (.)
== END 2025-02-06 23:59 | disposition home or self-care (01) ==
LOC: LAB.DROPOF 02-08 10:56
PROVIDERS: PCP Nurse Practitioner; Visit Provider Nurse Practitioner
DX: C50.919 Malignant neoplasm of unspecified site of unspecified female breast (principal); K21.9 Gastro-esophageal reflux disease without esophagitis; M79.641 Pain in right hand; M79.642 Pain in left hand; E78.5 Hyperlipidemia, unspecified; Z13.1 Encounter for screening for diabetes mellitus; R20.2 Paresthesia of skin
CPT/HCPCS: 80053; 80061; 82306; 82607; 83036; 84443; 84550; 85025; 85651; 86038; 86225; 86235; 86431